=== PATIENT | female | born 1950 | race Caucasian/White ===

== ENCOUNTER 2017-01-29 15:13 | Outpatient (RCR) | payer MEDICARE, BC, SELFPAY | END 2017-01-29 19:00 | disposition home or self-care (01) | LOC: SP 15:13 | PROVIDERS: Family Provider Internal Medicine; PCP Internal Medicine; Visit Provider Nurse Practitioner Adult Health | DX: R13.13 Dysphagia, pharyngeal phase (principal); K21.9 Gastro-esophageal reflux disease without esophagitis; Z79.899 Other long term (current) drug therapy ==

== ENCOUNTER → 2018-07-13 13:37 | Outpatient (CLI) | payer MEDICARE, BC, SELFPAY ==
[2016-07-31 10:38] VITALS: BMI 49.4
--- NOTE | 2018-07-13 13:40 | RAD_ITS ---
STUDY: X-RAY - LUMBAR SPINE REASON FOR EXAM: Female, 67 years old. Back pain. Previous surgery. TECHNIQUE: 4 view(s) of the lumbar spine were obtained with flexion and extension views. COMPARISON: MRI 08/06/2015. FINDINGS: Patient has had posterior fusion with bilateral intrapedicular screws and posterior rods at L3 and L4. No evidence for surgical complication. Normal alignment along this segment. Moderate narrowing of the disc. Neutral view shows exaggerated lordosis. Flexion and extension views show essentially no normal motion. There are no subluxations. There is fusion of the disc at L2-L3, and moderate to severe degenerative disc disease at all other levels are No significant malalignments. Calcified plaque in the aorta. No compression fractures. RAD/L/S Spine Min 4 Views IMPRESSION: Posterior surgical fusion between L3 and L4 with no complication. Little if any range of motion. Moderate to severe multilevel degenerative changes. Electronically Signed: Sai Ly MD at 14:59 EDT , Service support ,
== END ==
PROVIDERS: Family Provider Internal Medicine; PCP Internal Medicine; Referring Provider Orthopaedic Surgery; Visit Provider Orthopaedic Surgery
DX: M54.5 Low back pain (principal)
CPT/HCPCS: 72110

== ENCOUNTER → 2018-07-28 12:44 | Outpatient (CLI) | payer MEDICARE, BC, SELFPAY ==
--- NOTE | 2018-07-28 12:47 | MRI_ITS ---
HISTORY:RRadiculopathyR hip into R leg h/o prior sx 07/2017 RRadiculopathyR hip into R leg h/o prior sx 07/2017 EXAMINATION: MR Spine Lumbar WO/W Contrast TECHNIQUE: Multiplanar and multisequence MR images of the lumbar spine. IV Contrast dosage and agent: 20 cc of Dotarem. COMPARISON: August 15, 2015 also radiographs of the lumbar spine obtained on July 13, 2018 FINDINGS: Left convexity scoliosis Postsurgical changes are noted at the level of L3 and L4 with posterior rods and pedicle screws The conus appears within normal limits and ends at the level of T12-L1 VERTEBRAE: Vertebral body heights are preserved. There is increased signal seen on postcontrast sagittal images involving the L2 vertebral body however there is no evidence of abnormal STIR signal. On noncontrast images there are Modic type II changes seen at the level of L1-2 and L2-3. This may be artifactual as it is not seen on postcontrast axial images. VERTEBRAL ALIGNMENT: No spondylolisthesis. Levoscoliosis CORD: Normal position and signal intensity of the conus medullaris. SOFT TISSUES: There are postsurgical changes in the soft tissues at the level of L3 and L4. This area does enhance with contrast compatible with granulation tissue.. It also demonstrates increased signal on STIR-weighted imaging T12-L1: There is a diffuse annular bulge without evidence of canal stenosis and significant neuroforaminal narrowing. This is similar in appearance to the prior study. There is a meningioma that is seen within the T12 vertebral body L1/L2: Decreased disc height and hydration. There is a diffuse annular bulge asymmetric to the left. This was seen on the prior study and is similar. There is mild to moderate bilateral neural foraminal narrowing similar to prior study there is also facet arthrosis. The canals at the lower limits of normal L2/L3: There is near ankylosis at the level of L2-3. Posterior osteophytes are noted. There is no evidence of canal stenosis. There is mild to moderate left and moderate right neural foraminal narrowing L3/L4: No evidence of a disc contour abnormality or canal stenosis. Laminectomy defect at this level. No significant neuroforaminal narrowing L4/L5: Minimal annular bulge without evidence of canal stenosis. Laminectomy defect. Moderate bilateral neuroforaminal narrowing L5/S1: There are posterior osteophytes at this level with decreased disc height and hydration in Modic type II changes at the endplates. Osteophytes extend into the neural foramen bilaterally. There is moderate bilateral neural foraminal narrowing. Laminectomy defect at this level with granulation tissue. In the right neural foramen there is a soft tissue density that may represent a disc protrusion seen on axial image 6 series 8 and series 6. It is also seen on image 4 series 5. This does not enhance with contrast. MRI/Spine Lumbar W/WO Contrast IMPRESSION: Postsurgical changes at the level of L3 and L4 with posterior rods and pedicle screws. Laminectomy defects are seen extending to L5. At the level of L5-S1 there is nonenhancing signal seen within the right neural foramen suspect for a disc protrusion/extrusion. Granulation tissue is seen at the surgical bed as discussed There is abnormal signal that is seen within the L2 vertebral body on sagittal postcontrast images however it is not seen on axial images and I suspect is artifactual. at 1743 Reported and signed by: Carmen Cooper DO Electronically Signed: Carmen Cooper DO at 17:42 EDT Tel , Service support ,
[2018-07-28 13:50] LABS: EGFR FINGERSTICK > 60.0000 mL/min (>60)
== END ==
PROVIDERS: Family Provider Internal Medicine; PCP Internal Medicine; Referring Provider Orthopaedic Surgery; Visit Provider Orthopaedic Surgery
DX: M54.16 Radiculopathy, lumbar region (principal)
CPT/HCPCS: 72158; A9575

== ENCOUNTER 2018-08-12 13:00 | Outpatient (RCR) | payer MEDICARE, BC, SELFPAY ==
[2018-07-13 13:52] VITALS: BMI 46.7
--- NOTE | 2018-07-22 13:37 | HP.PTEVAL_ITS ---
Patient's Visit Information MATHEW OSBORNE is a 67 year old F referred to Physical Therapy by Rubina Olguin MD with a diagnosis of LOW BACK PAIN. Date of Evaluation: 07/22/18 Physical Therapist: Vida Ramirez PT, Cert MDT - Visit Plan Frequency: 2x /Week Duration: 2 Months Plan: POSTURE CORRECTION/STRENGTHENING, INSTRUCTION IN APPROPRIATE BODY MECHANICS AND ACTIVITY MODIFICATIONS. DLS STARTING WITH A NEUTRAL SPINE PROGRESSING ROM TOLERATED. ISAAC LE ROM, STRETCHING AND STRENGTHENING. HEP INSTRUCTION. PATIENT DELCINES AQUATIC THERAPY BECAUSE OF HER BADDER. - Subjective Findings: Work/Leisure: RETIRED. Disability: NO. Present symptoms: RIGHT SCIATICA, LOW BACK PAIN, PAIN IN RIGHT HIP, RIGHT THIGH, RIGHT KNEE. PATIENT REPORTS SHE HAS NUMBNESS AND TINGLING IN BOTH HANDS, BOTH FEET AND COMING UP LEGS TO KNEES. GETTING FURTHER UP LEGS. STATES SHE HAS BEEN DIAGNOSED WITH NEUROPATHY. Present since: CHRONIC. Pain Scale: WORST 20/10, LEAST 2/10. Currently: 2/10. Commenced as a result of: NO APPARENT REASON. Symptoms at onset: LOW BACK. Worse: STANDING, WALKING. Better: SITTING, [place]. Disturbed sleep: YES. Previous history/Previous treatment: LUMBAR SURGERY 11/14/17, LUMBAR INJECTIONS 2013. HOME PHYSICAL THREAPY AFTER BACK SURGERY. LUMBAR CHIROPRACTIC TREATEMENTS X 1 YEAR A LONG TIME AGO - DIDN'T HELP. MASSOTHERAPY HELPS - NONE SINCE 2013. Coughing/sneezing/straining: NEGATIVE. Gait: TIME AND DISTANCE LIMITED. NEEDS CANE FOR BALANCE. Difficulty initiating urinatin: NO. Accidents: NO. NO RECENT FALLS. Unexplained weight loss: NO. Imaging: MRI PENDING OF LOW BACK JULY 28 2018. NO RECENT X-RAYS THAT PATIENT CAN RECALL. PMH: BAD EQUALIBRIUM AND UNSTEADY FEET. LOOSES BALANCE BUT DOES NOT FALL. RIGHT THR 2013, LEFT THYROIDECTOMY 2016, SKULL FX 1969 - Objective Sitting/Standing Posture: POOR. Lordosis: DECREASED. Lateral shift: NO. Relevant shift: N/A. Active Correction of posture: NE. Other Observations: INDEP ANTALGIC GAIT INTO PT X APPROX 300 FEET WITH QUAD CANE. NO LOB. INCREASED TRUNK FLEXION, DECREASED CADANCE AND DECREASED ISAAC STRIDE LENGTH. QUICK SHORT STEPS WITH WIDE BASE OF SUPPORT. Motor deficit: ISAAC LE WEAKNESS. I PROCEEDED CAREFULLY WITH MMT'ING BECAUSE OF PATIENT C/O OF ISAAC LE TENDERNESS LEFT > RIGHT (OLD INJURY). ISAAC HIPS 4-/5, KNEE EXT 4/5, KNEE FLEX 4/5, ANKLES 4/5. Sensory deficit: ISAAC LE LIGHT TOUCH SENSATION APPEARS INTACT AND SYMMETRICAL BUT PATIENT REPORTS BOTH HYPERSENSATIVITY AND NUMBNESS IN BOTH LEGS FROM KNEES DOWN. ROM deficit: TIGHT ISAAC HIP FLEXORS, HS'S AND GASTROC SOLEUS COMPLEX'S. Reflexes: NT. Dural Signs: NEGATIVE ISAAC LE DURAL SIGNS. Lumbar mvmt loss: flex - MIN. ext - LUNA. R SG - LUNA. L SG - LUNA. Core strength: POOR. Palpation: NO ACUTE TENDERNESS WITH LIGHT PALPATION OF LOWER THORACIC SPINE, LUMBAR SPINE OR ISAAC HIPS BUT PATIENT REPORTS RIGHT HIP TENDERNESS WITH DEEP PALPATION. - Goals Goal 1:: DECREASE C/O BACK AND ISAAC LE SX'S. Goal Time Frame: 6-8 Weeks Goal 2:: IMPROVE PERSONAL CARE, LIFTING, WALKING, STANDING, SOCIAL LIFE, AND SLEEP FUNCTION Goal Time Frame: 6-8 Weeks Goal 3:: INSTRUCT IN PROPHYLAXIS Goal Time Frame: 6-8 Weeks - Rehabilitation Potential Rehabilitation Potential: Fair - Anticipated Interventions Patient/Client Instruction: Educate patient on: Condition, Plan of Care, Risk Factors, Benefits of Fitness Program For the Purpose of:: To improve self management Therapeutic Exercise to Include: Strength training, Body mechanics, Postural tra ining, Flexibilty training, Dynamic Lumbar Stabilization Comment: FOCUS ON HEP For the Purpose of:: To decrease pain, To increase ROM, To improve muscle performance and motor function, To increase tolerance to activity/condition/position, To improve ability of physical actions for home/community/work/leisure, To improve gait and locomotor functions Thank you for the opportunity to evaluate your patient. For Medicare and Medicare HMO plans, please review the plan of care and approve it. It will need to be FAXED BACK to us at [phone] for Medicare purposes. For Medicare only, by signing this I certify the plan of care. Please let me know if there are questions or concerns regarding this plan of care. Physician Signature: Date:
--- NOTE | 2018-08-12 13:29 | HP.PTDCSUM_ITS ---
HP - PT D/C Summary It has been my pleasure to treat MATHEW OSBORNE under orders from Rubina Olguin MD, for the diagnosis of LOW BACK PAIN for a total of 7 visit(s). Discharge Date: Please see the following information for a summary of their discharge status. - Subjective Subjective: PATIENT REPORTS SHE IS STILL VERY PAINFUL. STATES IT HAS BEEN REALLY HARD TO DO THE THERAPY. SHE DOES NOT SEE ANY BENEFIT FROM THE THERAPY. - Pain Sciatic Pain Intensity (Out of 10): 3 - Overall Improvement % Improvement: 0 - Objective Objective/Function: Patient Playfully complains throughout sessions but does what is asked. NO SIGNIFICANT CHANGES UPON EXAM TODAY COMPARED TO INITIAL EVAL AND PATIENT IS NOT REPORTING ANY SIGNIFICATNT CHANGES. TODAY: INDEP ANTALGIC GAIT INTO PT X APPROX 300 FEET WITH QUAD CANE. NO LOB. INCREASED TRUNK FLEXION, DECREASED CADANCE AND DECREASED ISAAC STRIDE LENGTH. QUICK SHORT STEPS WITH WIDE BASE OF SUPPORT. Motor deficit: ISAAC LE WEAKNESS. I PROCEEDED CAREFULLY WITH MMT'ING BECAUSE OF PATIENT C/O OF ISAAC LE TENDERNESS LEFT > RIGHT (OLD INJURY). ISAAC HIPS 4-/5, KNEE EXT 4/5, KNEE FLEX 4/5, ANKLES 4/5. Sensory deficit: ISAAC LE LIGHT TOUCH SENSATION APPEARS INTACT AND SYMMETRICAL BUT PATIENT REPORTS ISAAC HYPERSENSATIVITY AND NUMBNESS IN BOTH LEGS FROM KNEES DOWN. ROM deficit: TIGHT ISAAC HIP FLEXORS, HS'S AND GASTROC SOLEUS COMPLEX'S. Refl exes: NT. Dural Signs: NEGATIVE ISAAC LE DURAL SIGNS. Lumbar mvmt loss: flex - MIN. ext - LUNA. R SG - LUNA. L SG - LUNA. Core strength: POOR. Palpation: NO ACUTE TENDERNESS WITH LIGHT PALPATION OF LOWER THORACIC SPINE, LUMBAR SPINE OR ISAAC HIPS BUT PATIENT REPORTS RIGHT HIP TENDERNESS WITH DEEP PALPATION. - Goals Goal 1:: DECREASE C/O BACK AND ISAAC LE SX'S. Goal Progress: Not Progressing Goal 2:: IMPROVE PERSONAL CARE, LIFTING, WALKING, STANDING, SOCIAL LIFE, AND SLEEP FUNCTION Goal Progress: Not Progressing Goal 3:: INSTRUCT IN PROPHYLAXIS Goal Progress: Not Progressing - Plan Plan: D/C DUE TO LACK OF PROGRESS. PATIENT AGREEABLE. - D/C Information If there are questions or concerns regarding this patient's physical therapy, please feel free to call me at [phone]. Thank you for the referral of this patient. Sincerely, Vida Ramirez, PT, Cert MDT
== END 2018-08-12 19:00 | disposition home or self-care (01) ==
LOC: PT 13:00
PROVIDERS: Family Provider Internal Medicine; PCP Internal Medicine; Referring Provider Orthopaedic Surgery; Visit Provider Orthopaedic Surgery
DX: M54.5 Low back pain (principal)
CPT/HCPCS: 97110; 97162; 97530

== ENCOUNTER 2018-12-08 10:30 | Outpatient (RCR) | payer MEDICARE, BC, SELFPAY ==
--- NOTE | 2018-11-12 09:11 | HP.OTEVAL ---
Patient's Visit Information MATHEW OSBORNE is a 68 year old F, referred to Occupational Therapy by Monster Boogie MD, with a diagnosis of left primary osteoarthritis of 1st carpometacarpal joint. Date of Evaluation: 11/11/18 Occupational Therapist: Sherin Borrego, JAM/Andrez, CHT - Subjective Subjective: This 68 year old female was seen for OT eval following a left CMC arthroplasty with LRTI 10/13/28. Pt states she had pain on and off for a few years. Pt arrives following sx cast removal for custom orthosis and rehabilitation following her CMC arthroplasty. Pt states she is BONNY with ADLs at this time due to her inability to use her left hand for daily tasks. - ADLs Dressing: Button shirt, Pants, Socks, Shoes Bathing: Handle washcloth & soap Toileting: Manage clothing - Pain left thumb 2 Pain Intensity Range: 0, 5 - ROM Wrist: right 60/45 let 45/15 CMC: right 15 left 15 MP: right 50 left 30 IP: right 65 left 40 Opposition: right 8 left 2 - Strength Pipe Fitter Welding: right 30# left NT Lateral Pinch: right 12# left NT Tripod Pinch: right 12# left NT - Sensation Sensation Comments: denies - Quick DASH-Disab of Arm,Shoulder& Hand Quick DASH Score: 72.7250 - Goals Goal:100% adherence to protocol: Yes Comment: CMC arthroplasty with LRTI Goal:Daily scar massage when approriate: Yes Goal:ROM equal to unaffected hand: Yes Goal:Pipe Fitter Welding/Pinch strength at least 75% of unaffected hand: Yes Goal:No pain with affected hand use: Yes Goal:Full use of affected hand in daily activities including: Yes - Rehabilitation General Assessment: pt demo limited ROM,weakness of left UE following a left CMC arthroplasty. Pt reports pain at times with motion and this is limiting her with her ADLs and IADLS. PT would benefit from skilled OT services 1x week for 6 weeks to return pts ROM and strength to PLOF. Today therapist mali. custom orthosis to provide support and protection of CMC arthroplasty. pt ed in ROM ex and protocol. pt demo understanding and agree to POC. Rehabilitation Potential: Good - Anticipated Interventions Anticipated Interventions: A/AAROM/PROM, Strengthening, Scar Care, Triggerpoint Release, Modalities, Orthoses, Joint Protection/Energy Conservation - Visit Plan Frequency: 1x/Week Duration: 6 Weeks TEXT: Thank you for the opportunity to evaluate your patient. For Medicare and Medicare HMO plans, please review the plan of care and approve it. It will need to be FAXED BACK to us at [phone] for Medicare purposes. Please let me know if there are questions or concerns regarding this plan of care. Physician Signature: Date:
--- NOTE | 2018-12-08 10:34 | HP.OTDCSUM ---
HP - OT D/C Summary It has been my pleasure to treat MATHEW OSBORNE under orders from Monster Boogie MD, for the diagnosis of left primary osteoarthritis of 1st carpometacarpal joint for a total of 4 visit(s). Please see the following information for a summary of their discharge status. - Overall Improvement % Improvement: 90 - Objective Objective/Function: left wrist 55/45. left MP flex 35*. left IP flex 45*. pt is demo functional return of her left wrist and thumb ROM. left motor grader rough grade strength. 17# right motor grader rough grade strength is 20# - Goals Patient Goals: Regain Mobility, Regain Strength, Decrease Pain, Use Hand/Wrist/Arm Normally Again, Be More Independent in ADLS Goal:100% adherence to protocol: Yes Goal:Daily scar massage when approriate: Yes Goal:ROM equal to unaffected hand: Yes Goal:Hydroelectric Plant Operator/Pinch strength at least 75% of unaffected hand: Yes Goal:No pain with affected hand use: Yes Goal:Full use of affected hand in daily activities including: Yes - Plan Plan: D/C - D/C Information Discharge Comments: pt demo great recovery from her CMC arthroplasty. pt has returned to performing all ADLS and IADls at [facility]. pt reports sorness from time to time and then she knows to stop what she is doing. pt has met goals in OT and is D/C at this time. If there are questions or concerns regarding this patient's occupational therapy, please fell free to call me at [phone]. Thank you for the referral of this patient. Sincerely, Sherin Borrego, OTR/L, CHT
== END 2018-12-08 11:03 | disposition home or self-care (01) ==
LOC: OT 10:30
PROVIDERS: Family Provider Internal Medicine; PCP Internal Medicine; Referring Provider Orthopaedic Surgery; Visit Provider Orthopaedic Surgery
DX: M18.12 Unilateral primary osteoarthritis of first carpometacarpal joint, left hand (principal)
CPT/HCPCS: 97110; 97166; 97530

== ENCOUNTER → 2019-07-19 14:14 | Outpatient (CLI) | payer MEDICARE, BC, SELFPAY ==
[2019-07-19 17:53] LABS: Absolute Lymphocyte Count 2.24 X10^3/uL (0.83-4.51); Absolute Neutrophil Count 5.2 X10^3/uL (2.0-7.7); Basophil# 0.04 X10^3/uL; Basophil% 0.5 % (0-1); Eosinophil# 0.44 X10^3/uL; Eosinophils% 5.1 % (0-5); Hemoglobin 12.5 g/dL (12.0-15.0); Lymphocyte # 2.24 X10^3/ul (4.0); Mean Corp Hgb Conc 31.3 g/dL (32-36); Mean Corpuscular Hgb 28.9 pg (27.0-32.0); Mean Corpuscular Volume 92.6 fL (81-99); Mean Platelet Vol. 11.1 fl (6.2-12.0); Monocyte# 0.66 X10^3/uL; Monocyte% 7.7 % (0-10); NRBC Flagged by Analyzer 0 % (0-5); Neutrophil # 5.21 X10^3/uL (2.7-7.7); Neutrophil % 60.5 % (47-70); Platelet Count 286 K/mm3 (150-450); RBC Distribution Width CV 15.4 % (11.6-14.6); RBC Distribution Width SD 52.3 fl (35.1-43.9); Red Blood Count 4.32 M/mm3 (4.2-5.4); White Blood Count 8.6 K/mm3 (4.4-11.0)
[2019-07-19 18:26] LABS: ALB/GLOB Ratio 0.7 RATIO (0.9-2.4); AST(SGOT) 21 U/L (15-37); Alanine Aminotransfer ALT/SGPT 26 U/L (13-56); Albumin, Serum 3.1 g/dL (3.2-5.0); Alkaline Phosphatase 146 U/L (45-117); Anion Gap 7 (5-15); BUN 22 mg/dL (7-18); BUN/Creat Ratio 25.9 RATIO (10-20); Chloride 104 mmol/L (98-107); Creatinine, Serum 0.85 mg/dL (0.55-1.02); EST Glomerular Filtration Rate 70 mL/min (>60); Est Glom Filt Rate - Afr Amer 85 mL/min (>60); Globulin 4.4 g/dL (2.2-4.2); Glucose 77 mg/dL (74-106); Potassium 3.6 mmol/L (3.5-5.1); Protein, Total 7.5 g/dL (6.4-8.2); Rheumatoid Factor < 10.0 IU/mL (<15); Sodium Level 140 mmol/L (136-145)
[2019-07-20 11:20] LABS: Hepatitis B Surface Antibody Non-Reactive; Hepatitis B Surface Antigen Non-Reactive (Nonreactive); Hepatitis C Antibody Non-Reactive (Nonreactive)
[2019-07-22 13:16] LABS: CCP IgG Antibodies 7 units (0-19); Hepatitis B Core AB IgM Negative (Negative)
[2019-07-22 13:19] LABS: ANTINUCLEAR ANTIBODIES DIRECT Negative (Negative)
== END ==
PROVIDERS: PCP Internal Medicine; Referring Provider Internal Medicine Rheumatology; Visit Provider Internal Medicine Rheumatology
DX: M06.4 Inflammatory polyarthropathy (principal); M79.7 Fibromyalgia; M19.041 Primary osteoarthritis, right hand; M47.892 Other spondylosis, cervical region; M47.897 Other spondylosis, lumbosacral region; M21.41 Flat foot [pes planus] (acquired), right foot; K21.9 Gastro-esophageal reflux disease without esophagitis; K44.9 Diaphragmatic hernia without obstruction or gangrene; I10 Essential (primary) hypertension; E89.0 Postprocedural hypothyroidism; E78.5 Hyperlipidemia, unspecified; G60.9 Hereditary and idiopathic neuropathy, unspecified; H81.09 Meniere's disease, unspecified ear; N39.41 Urge incontinence; I87.2 Venous insufficiency (chronic) (peripheral)
CPT/HCPCS: 36415; 80053; 85025; 86038; 86200; 86431; 86705; 86706; 86803; 87340

== ENCOUNTER → 2019-09-07 14:20 | Outpatient (CLI) | payer MEDICARE, BC, SELFPAY ==
[2018-07-13 13:52] VITALS: BMI 46.7
[2019-09-07 17:54] LABS: Absolute Lymphocyte Count 2.21 X10^3/uL (0.83-4.51); Absolute Neutrophil Count 5.5 X10^3/uL (2.0-7.7); Basophil# 0.04 X10^3/uL; Basophil% 0.4 % (0-1); Eosinophil# 0.35 X10^3/uL; Eosinophils% 3.9 % (0-5); Hemoglobin 12.9 g/dL (12.0-15.0); Lymphocyte # 2.21 X10^3/ul (4.0); Lymphocyte % 24.8 % (19-41); Mean Corp Hgb Conc 31.5 g/dL (32-36); Mean Corpuscular Hgb 30.3 pg (27.0-32.0); Mean Corpuscular Volume 96.2 fL (81-99); Mean Platelet Vol. 10.7 fl (6.2-12.0); NRBC Flagged by Analyzer 0 % (0-5); Neutrophil # 5.48 X10^3/uL (2.7-7.7); Neutrophil % 61.7 % (47-70); Platelet Count 280 K/mm3 (150-450); RBC Distribution Width SD 56.3 fl (35.1-43.9); Red Blood Count 4.26 M/mm3 (4.2-5.4); White Blood Count 8.9 K/mm3 (4.4-11.0)
[2019-09-07 18:06] LABS: ALB/GLOB Ratio 0.7 RATIO (0.9-2.4); AST(SGOT) 23 U/L (15-37); Alanine Aminotransfer ALT/SGPT 32 U/L (13-56); Albumin, Serum 3.2 g/dL (3.2-5.0); Alkaline Phosphatase 153 U/L (45-117); Anion Gap 5 (5-15); BUN 18 mg/dL (7-18); BUN/Creat Ratio 20.9 RATIO (10-20); Calcium,Total 8.4 mg/dL (8.5-10.1); Chloride 104 mmol/L (98-107); Creatinine, Serum 0.86 mg/dL (0.55-1.02); EST Glomerular Filtration Rate 69 mL/min (>60); Est Glom Filt Rate - Afr Amer 84 mL/min (>60); Globulin 4.7 g/dL (2.2-4.2); Glucose 91 mg/dL (74-106); Potassium 3.3 mmol/L (3.5-5.1); Protein, Total 7.9 g/dL (6.4-8.2); Sodium Level 138 mmol/L (136-145)
== END ==
PROVIDERS: PCP Internal Medicine; Referring Provider Internal Medicine Rheumatology; Visit Provider Internal Medicine Rheumatology
DX: M06.4 Inflammatory polyarthropathy (principal); M79.7 Fibromyalgia; M19.041 Primary osteoarthritis, right hand; M17.0 Bilateral primary osteoarthritis of knee; M47.892 Other spondylosis, cervical region; M47.897 Other spondylosis, lumbosacral region; M21.41 Flat foot [pes planus] (acquired), right foot; K21.9 Gastro-esophageal reflux disease without esophagitis; K44.9 Diaphragmatic hernia without obstruction or gangrene; I10 Essential (primary) hypertension; E89.0 Postprocedural hypothyroidism; E78.5 Hyperlipidemia, unspecified; G60.9 Hereditary and idiopathic neuropathy, unspecified; H81.09 Meniere's disease, unspecified ear; I87.2 Venous insufficiency (chronic) (peripheral); N39.41 Urge incontinence; Z79.899 Other long term (current) drug therapy
CPT/HCPCS: 36415; 80053; 85025

== ENCOUNTER → 2019-11-04 13:32 | Outpatient (CLI) | payer MEDICARE, BC, SELFPAY ==
[2018-07-13 13:52] VITALS: BMI 46.7
[2019-11-04 15:52] LABS: Absolute Lymphocyte Count 1.86 X10^3/uL (0.83-4.51); Absolute Neutrophil Count 6.1 X10^3/uL (2.0-7.7); Basophil# 0.04 X10^3/uL; Basophil% 0.4 % (0-1); Eosinophil# 0.35 X10^3/uL; Eosinophils% 3.8 % (0-5); Hematocrit 41.6 % (37-47); Lymphocyte # 1.86 X10^3/ul (4.0); Lymphocyte % 20.3 % (19-41); Mean Corp Hgb Conc 31.3 g/dL (32-36); Mean Corpuscular Hgb 30.8 pg (27.0-32.0); Mean Corpuscular Volume 98.6 fL (81-99); Mean Platelet Vol. 11.6 fl (6.2-12.0); Monocyte# 0.77 X10^3/uL; Monocyte% 8.4 % (0-10); NRBC Flagged by Analyzer 0 % (0-5); Neutrophil # 6.11 X10^3/uL (2.7-7.7); Neutrophil % 66.6 % (47-70); Platelet Count 253 K/mm3 (150-450); RBC Distribution Width SD 61.2 fl (35.1-43.9); Red Blood Count 4.22 M/mm3 (4.2-5.4); White Blood Count 9.2 K/mm3 (4.4-11.0)
[2019-11-04 16:16] LABS: ALB/GLOB Ratio 0.7 RATIO (0.9-2.4); AST(SGOT) 28 U/L (15-37); Alanine Aminotransfer ALT/SGPT 33 U/L (13-56); Albumin, Serum 3.3 g/dL (3.2-5.0); Alkaline Phosphatase 166 U/L (45-117); Anion Gap 8 (5-15); BUN 21 mg/dL (7-18); Chloride 104 mmol/L (98-107); Creatinine, Serum 0.84 mg/dL (0.55-1.02); EST Glomerular Filtration Rate 71 mL/min (>60); Est Glom Filt Rate - Afr Amer 86 mL/min (>60); Globulin 4.6 g/dL (2.2-4.2); Glucose 107 mg/dL (74-106); Potassium 4.1 mmol/L (3.5-5.1); Protein, Total 7.9 g/dL (6.4-8.2); Sodium Level 139 mmol/L (136-145)
== END ==
PROVIDERS: PCP Internal Medicine; Referring Provider Internal Medicine Rheumatology; Visit Provider Internal Medicine Rheumatology
DX: M06.4 Inflammatory polyarthropathy (principal); M79.7 Fibromyalgia; M19.041 Primary osteoarthritis, right hand; M19.042 Primary osteoarthritis, left hand; M17.0 Bilateral primary osteoarthritis of knee; M47.892 Other spondylosis, cervical region; M47.897 Other spondylosis, lumbosacral region; M21.42 Flat foot [pes planus] (acquired), left foot; M21.41 Flat foot [pes planus] (acquired), right foot; Z79.899 Other long term (current) drug therapy
CPT/HCPCS: 36415; 80053; 85025

== ENCOUNTER 2020-01-12 17:16 | Emergency (ER) | payer MEDICARE, BC, SELFPAY ==
[2020-01-12 17:18] VITALS: BP 145/93; PULSE 69; RESP 17; TEMP 36.3; O2SAT 97; BMI 47.6
--- NOTE | 2020-01-12 17:42 | ED.DCSUM_ITS ---
History of Present Illness Chief Complaint: Back Informant: Patient Onset: Yesterday Context: Gradual Onset - after PT worked on my RLE Timing: Continuous Quality: Aching Location: Buttock, Right Leg - to knee, anteriorly and not beyond Current Severity: Moderate Maximum Severity: Severe Worsened by: improves with: Movement Relieved by: Remaining Still Associated Symptoms: Radiation to Right Leg, - - No new numbness or tingling or changes in her chronic bilateral foot tingling. No bowel or bladder dysfunction that is new or different. No abdominal pain or groin pain. Narrative: Patient states she had surgery on her cervical spine 1 month ago, and has a physical therapist coming to her house periodically to help her. Yesterday the were performing a maneuver on her right lower extremity that from the patient's description, seems to be gentle active external rotation while in flexed thigh position. Patient states she thinks that is the maneuver that created sciatica symptoms that she is describing, that started gradually afterwards and not acutely during it. She describes pain in her right posterior lateral buttock that radiates into the anterior thigh to the knee and not beyond. She has [place] from her operation that she is taking but it is not helping this pain at all. She presents today for relief from the pain. She lives alone but does have some help from some family who brought her here today. She denies any other new issues. No weakness in the leg, she is able to walk but it hurts in certain positions. Prior similar symptoms: Yes, With Prior Back Pain - sciatica - Past Medical History (1) Physical debility Status: Chronic (2) Gastroesophageal reflux disease without esophagitis Status: Chronic (3) Hypertension Status: Chronic (4) Hypothyroidism Status: Chronic (5) Morbid obesity with body mass index of 40.0-49.9 Status: Chronic Past Medical History - Allergies and Home Meds Allergies/Adverse Reactions: Allergies wool Allergy (Verified 01/12/20 17:17) Rash erythromycin base [From E-Mycin] Adverse Reaction (Verified 01/12/20 17:17) Upset Stomach ibuprofen Adverse Reaction (Verified 01/12/20 17:17) Swelling lisinopril Adverse Reaction (Verified 01/12/20 17:17) Unknown oxycodone HCl [From Percocet] Adverse Reaction (Verified 01/12/20 17:17) Itching MYOCIN Adverse Reaction (Uncoded 01/12/20 17:17) Nausea/Vom/Diarrhea Primary Care Physician: Jude Brennan MD [Primary Care Provider] - Surgical History: - - Neck. Low back. Right knee. Lives: Alone Smoking Status: Former smoker Review of Systems General: Denies: Chills, Fever, Sweats Cardiovascular: Denies: Chest pain, Palpitations Respiratory: Denies: Dyspnea, Cough Gastrointestinal: Reports: Abdominal pain. Denies: Nausea, Vomiting, Diarrhea, Hematochezia Genitourinary: Denies: Dysuria, Hematuria, Frequency Musculoskeletal: Reports: Neck pain, Back pain, Extremity Pain. Denies: Myalgias, Swelling Skin: Denies: Rash, Wounds Neurological: Reports: Numbness - Chronic, both feet mostly on the bottoms. Denies: Headache, Weakness Physical Exam Vital Signs/Narrative: Vital Signs Temp Pulse Resp BP Pulse Ox 01/12/20 17:18 97.3 F L 69 17 145/93 H 97 Inital Vital Signs reviewed: Yes General: Well nourished, Well developed, Obese, - - Sitting in wheelchair. No acute distress. Head: Normocephalic, Atraumatic Eyes: Perrl, EOMI Abdomen: Soft, Nontender, Nondistended, - - Nontender right groin, no hernia, no lymphadenopathy. Back: Normal Inspection, Negative SLR - Right, Negative SLR - Left, - - Only area of tenderness in the low back is the right buttock external rotators/piriformis area.. Negative for: Spinal tenderness Extremeties: No edema, Tenderness - Right thigh which is normal-appearing, all compartments soft. Able to flex quads without any difficulty. Pain can internally and externally rotate about the hip, both cause increased discomfort in her right buttock. She is able to range. Skin: Normal color, No rash Neuro: Alert, Oriented, Normal Strength, Normal Sensation, Normal DTR, - - No clonus bilaterally. Toes downgoing. Hyporeflexic and symmetric throughout both lower extremities. Psychological: Normal affect, Normal Mood Diagnostic/Tx/Re-eval - Medical Decision Making This may or may not actually be a radiculopathy. I discussed this with the patient. This may be muscular piriformis/external rotator-related pain. For that reason she was given oral Norflex in addition to a dose of morphine with prophylactic Zofran to try to help her pain. ED Disposition - Plan for ED Patient: Disposition: Home or Assisted Living Diagnosis: Acute low back pain Instructions: ED Back Pain Acute or Chronic Referrals: Jude Brennan MD [Primary Care Provider] - 3-5 Days if not improving
[2020-01-12] MEDS: Orphenadrine 100 MG Tablet PO (17:54)
[2020-01-12] MEDS: Morphine 4 MG/ML Syringe IM (17:54)
[2020-01-12] MEDS: Ondansetron ODT 4 MG Tablet 8 MG PO (17:54)
== END 2020-01-12 18:20 | disposition home or self-care (01) ==
LOC: ED 17:59
PROVIDERS: Emergency Provider Emergency Medicine; PCP Internal Medicine
DX: M54.5 Low back pain (principal); I10 Essential (primary) hypertension; K21.9 Gastro-esophageal reflux disease without esophagitis; E03.9 Hypothyroidism, unspecified; E66.01 Morbid (severe) obesity due to excess calories; Z68.42 Body mass index [BMI] 45.0-49.9, adult; Z88.5 Allergy status to narcotic agent; Z88.6 Allergy status to analgesic agent; Z79.899 Other long term (current) drug therapy; Z87.891 Personal history of nicotine dependence
CPT/HCPCS: 96374; 99283

== ENCOUNTER 2020-02-18 18:31 | Emergency (ER) | payer MEDICARE, BC, SELFPAY ==
[2020-02-18 18:32] VITALS: BP 141/68; PULSE 66; RESP 20; TEMP 36.7; O2SAT 96; BMI 45.9
[2020-02-18 19:21] VITALS: BP 132/70; PULSE 60; RESP 15; O2SAT 97
--- NOTE | 2020-02-18 19:22 | ED.DCSUM_ITS ---
- ER Visit Summary Date of Service: 02/18/20 Chief Complaint: Right posterior shoulder pain History of Present Illness: The patient is a 69 F prior lumbar and cervical fusion. Hypertension, high cholesterol and hypothyroidism. Patient states that she has right shoulder pain from time to time she calls it upper extremity postop sciatica. States she had surgery in November and in [facility]. She was doing well. Today she had recurrent pain. And states has been going on intermittently the last week. Worse with movement. She said Tylenol and [place] have not helped her pain. She denies any falls or trauma. No chest pain, shortness of breath or fever. Physical Examination: Well-appearing older female vital signs stable afebrile. Pulse ox 96% on room air no signs hypoxia. HEENT exam unremarkable. C-spine old well-healed cervical surgery. Spine nontender. No lymphadenopathy. Lungs clear to auscultation bilaterally. Heart regular rhythm no murmur. Chest wall nontender. Abdomen soft nontender obese. Back she has right trapezius reproducible tenderness. Consistent with muscle spasm. Both upper extremities are neurovascular intact. Dorsi plantarflexion intact. She has normal superintendent production strength bilaterally and sensation. She is moving all 4 extremities. Neurologically she is awake and alert. No focal motor deficits. Test Results: None Emergency Department Course and Treatment: Patient with a prior visit with similar complaint consistent with myofascial spasm of the shoulder. Should be given an injection of IM morphine and p.o. Zofran. She can use [place] at home for pain. Treatment Plan: Follow-up with her primary care physician. Hot shower, warm bath and massage to the right shoulder. Limited [place] 10 no refill for pain. Disposition: discharge Impression: Acute right shoulder muscle spasm Hx of both cervical fusion and lumbar fusion This note was generated with [employer] dictation software. It may contain incorrect words, spelling, and punctuation that were not noted in review of the chart prior to signing ED Disposition - Plan for ED Patient: Referrals: Jude Brennan MD [Primary Care Provider] -
--- NOTE | 2020-02-18 19:25 | ED.DEP ---
ED Disposition - Plan for ED Patient: Disposition: Home or Assisted Living Instructions: ED Muscle Spasm Prescriptions: Hydrocodone/Acetaminophen [[place] 5-325 Tablet] 1 ea PO 4X/DAY PRN PRN 3 Days #10 tab PRN Reason: Pain 1-10 Or Fever Prescription Printed Referrals: Jude Brennan MD [Primary Care Provider] - 3-5 Days if not improving Additional Instructions: Hot shower, warm bath and massage her right shoulder. You have muscle spasm the muscle needs to be relax. Limited [place] for pain. Follow-up with your doctor if not improving. Return to the emergency department if feeling worse.
[2020-02-18] MEDS: Ondansetron ODT 4 MG Tablet PO (19:35)
[2020-02-18] MEDS: morphine 8 MG/ML Syringe SC (19:35)
== END 2020-02-18 20:05 | disposition home or self-care (01) ==
PROVIDERS: Emergency Provider Emergency Medicine; PCP Internal Medicine
DX: M62.838 Other muscle spasm (principal); Z98.1 Arthrodesis status; I10 Essential (primary) hypertension; E78.00 Pure hypercholesterolemia, unspecified; E03.9 Hypothyroidism, unspecified; Z79.899 Other long term (current) drug therapy
CPT/HCPCS: 96372; 99283

== ENCOUNTER 2020-03-30 14:00 | Outpatient (RCR) | payer MEDICARE, BC, SELFPAY ==
--- NOTE | 2020-03-07 14:02 | HP.PTEVAL_ITS ---
Patient's Visit Information MATHEW OSBORNE is a 69 year old F referred to Physical Therapy by Dr. Zuhair Main MD with a diagnosis of CERVICAL STENOSIS. S/P C2-7 FUSION 12/09/19.. Date of Evaluation: 03/07/20 Physical Therapist: Vida Ramirez, PT, Cert MDT - Visit Plan Frequency: 2-3x /Week Duration: 4-6 Weeks Plan: MH NEEDED. POSTURE CORRECTION/STRENGTHENING, INSTRUCTION IN APPROPRIATE BODY MECHANICS AND ACTIVITY MODIFICATIONS. DLS WITH A NEUTRAL SPINE FRANC ATED. AROM (NO PROM) OF CERVICAL SPINE. ISAAC LE ROM, STRETCHING AND STRENGTHENING. HEP INSTRUCTION. - Subjective Diagnosis: S/P CERVICAL FUSION C2-C7 BY DR. MAIN. Work/Leisure: RETIRED. Present symptoms: RIGHT SHOULDER BLADE PAIN. INTERMITTENT NECK PAIN. CHRONIC NECK CRACKING. SEPERATE L SHLD PAIN. UE NEUROPATHY. Present since: CHRONIC NECK PAIN FOR YEARS. Pain Scale: Worst - 10+/10 Least - 0/10. Currently: 0/10. Commenced as a result of: NO APPARENT REASON - WORE OUT. Symptoms at onset: NECK. Worse: MOVING CERTAIN WAYS. RANDOM. Better: HOLDING STILL, LEANING BACK ON CHAIR. Disturbed sleep: NO. Previous history/Previous treatment: 2015 - ACDF C3-C6. NO CHIROPRACTOR FOR YEARS. DOES NOT LIKE CHIROPRACTORS. LIKES MASSAGE THERAPY BETTER. This episode: POSTERIOR FUSION C2-C7. PT IN THE HOSPITAL AND HOME PT AND OT. Dizziness: YES - CHRONIC. Tinnitis: YES - CHRONIC. Nausea: NO. Shortness of Breath: YES - CHRONIC WITH ALLERGIES. Difficulty Swollowing: TO A DEGREE. Gait: USING A QUAD CANE NEEDED OUTSIDE OF HOME. NOT USING ANY ASSISTIVE DEVICES IN HOME. Accidents: NO. Unexplained weight loss: NO. Imaging: PLANNED AT FOLLOW UP IN MAR 2020. PMH/Recent major surgery: CHRONIC ISAAC SHOULDER PROBLEMS. R THR 2014, 2 NECK FUSIONS, LOW BACK SURGERY. NOT DIABETIC. HTN. NO CANCER. NO STROKE. NO HEART ATTACKS. L THUMB SX 2019 - HURT THUMB YESTERDAY WORKING WITH A BINDER. OTHER: PATIENT RELATES A LOT OF HER ORTHOPEDIC PROBLEMS TO HEAVY FACTORY WORK FOR YEARS. PATIENT REPORTS SHE IS DOING SOME OF HER HOME EX'S FOR HER NECK BUT SHE DOENS' T REALLY COUNT. - Objective Sitting Posture/Standing Posture: POOR. FH AND ROUNDED SHLD'S. Active Correction of posture: WORSE - INCREASES R SHLD BLADE PAIN. Other Observations: INDEP GAIT INTO PT WITH QUAD CANE. GAIT IS LABORED AND PATIENT WALKS WITH SHORT ISAAC STEPS. SHE WAS ABLE TO WALK ABOUT 300 FEET X 2 TODAY WITH DIFFICULTY BUT REFUSED TO SIT PART WAY BETWEEN LOBBY AND TREATMENT ROOM. PATIENT IS UE DEPENDENT TO TRANSFER FROM SIT TO STAND. ROM/Motor deficit: RIGHT SHOULDER ELEVATION LIMITED TO APPROX 90 DEG. LEFT SHLD ELEVATION TO APPROX 100 DEG. RIGHT POLICE OFFICER STRENGTH 15 LBS, LEFT 5 LBS. ISAAC UE ELBOW, WRIST ROM WFL BUT ARTHRITIC HANDS. Sensory deficit: ISAAC UE LIGHT TOUCH SENSATION APPEARS INTACT AND SYMMETRICAL. Reflexes: UNABLE TO ELICIT ISAAC UE DTR'S. Cervical Mvmt Loss: Flex: MIN. Pro: NIL. Ext: LUNA. Ret: LUNA. RSB: LUNA. LSB: LUNA. R Rot: LUNA. L Rot: LUNA. Postural strength: POOR. Palpation: INCISION LOOKS GOOD WITHOUT ANY SIGNS OF INFECTION. TREATMENT: PATIENT DEMO'D AROM OF C-SPINE AND SCAP SQUEEZES THAT SHE HAS BEEN SINCE GIVEN TO HER BY PRIOR PT'S. ADDED CERVICAL ISO'S ALL PLANES EXCEPT EXT TO HEP TODAY X 3 REPS EA, HOLDING FOR 3 SEC EA AND 3 TIMES A DAY. PATIENT TOLERATED ISO'S WELL. OTHER: PATIENT REPORTS THE ONLY RESTRICTION SHE HAS IS TO NOT ROLL HER HEAD. - Goals Goal 1:: DECREASE C/O NECK AND RIGHT SCAPULAR PAIN Goal Time Frame: 4-6 Weeks Goal 2:: IMPROVE PERSONAL CARE, LIFTING, READING, WORK, DRIVING AND RECREATIONAL FUNCTION. Goal Time Frame: 4-6 Weeks Goal 3:: INSTRUCT IN PROPHYLAXIS Goal Time Frame: 4-6 Weeks - Anticipated Interventions Patient/Client Instruction: Educate patient on: Condition, Plan of Care, Risk Factors, Benefits of Fitness Program For the Purpose of:: To improve self management Therapeutic Exercise to Include: Strength training, Body mechanics, Postural training, Neuromotor development, Active ROM, Scapular Strength/Stabilization For the Purpose of:: To decrease pain, To improve muscle performance and motor function, To increase tolerance to activity/condition/position, To improve ability of physical actions for home/community/work/leisure Thermo therapy (hot pack): Yes For the Purpose of:: To decrease pain, To improve nutrient delivery to tissue Thank you for the opportunity to evaluate your patient. For Medicare and Medicare HMO plans, please review the plan of care and approve it. It will need to be FAXED BACK to us at [phone] for Medicare purposes. For Medicare only, by signing this I certify the plan of care. Please let me know if there are questions or concerns regarding this plan of care. Physician Signature: Date:
--- NOTE | 2020-03-30 14:58 | HP.PTDCSUM ---
It has been my pleasure to treat MATHEW OSBORNE referred by Dr. Zuhair Main MD, with the diagnosis of CERVICAL STENOSIS. S/P C2-7 FUSION 12/09/19. for a total of 10 visit(s). Discharge Date: 03/30/20 Please see the following information for a summary of their discharge status. Subjective: She reports that she is the same old achy brachy. She wants the muscle between her ear and spine to lossen up. Pt reports that he neck is aggrevating and stiff. She has another massage appt soon. She reports that PT is helping with some pain relief and sciatica has decided to quit hurting. Pt reports that she saw her surgeon yesterday and goes back to him in [address] said to no shake her head yes and no. Pt wants to do Massage and HEP at this time. She kevin contact her Dr if she needs additional PT. c-spine Pain Intensity (Out of 10): Unrated R hip Pain Intensity (Out of 10): 1 % Improvement: 95 Objective/Function: C-spine flex 100%, Ext 25%, SB B 10%, Rot B 50%. Posture: works really hard to try and maintain upright posture. Goal 1:: DECREASE C/O NECK AND RIGHT SCAPULAR PAIN Goal Progress: Goal Met Goal 2:: IMPROVE PERSONAL CARE, LIFTING, READING, WORK, DRIVING AND RECREATIONAL FUNCTION. Goal Progress: Goal Met Goal 3:: INSTRUCT IN PROPHYLAXIS Goal Progress: Goal Met Plan: DC PT to HEP per pt request as she will be doing massotherapy and HEP. Discharge Comments: DC PT to HEP If there are questions or concerns regarding this patient's physical therapy, please feel free to call me at [phone]. Thank you for the referral of this patient. Sincerely, Jesika Bahena, MPT
== END 2020-03-30 19:00 | disposition home or self-care (01) ==
LOC: PT 14:00
PROVIDERS: PCP Internal Medicine; Referring Provider Neurological Surgery; Visit Provider Neurological Surgery
DX: M48.02 Spinal stenosis, cervical region (principal); G95.9 Disease of spinal cord, unspecified
CPT/HCPCS: 97110; 97162; 97530

== ENCOUNTER 2022-01-23 07:38 | Day surgery (SDC) | payer MEDICARE, BC, SELFPAY ==
--- NOTE | 2022-01-06 10:38 | PCM.HP.BLA ---
History and Physical Date of Admission: 01/23/22 HPI: The patient is a 71 year old female presenting for pre-operative visit. She is scheduled for Hysteroscopy D&C with polyp resection for PMB and endometrial polyp and thickened endometrium on 01/23/22. Procedure discussed along with risks, benefits and complications. Other alternatives discussed for management. Consent form signed? Yes. ? ? PAST MEDICAL HISTORY PAST MEDICAL HISTORY Diagnosis Date ? Acquired hypothyroidism 02/28/2015 ? Adjustment disorder with depressed mood 12/2019 ? Alkaline phosphatase elevation 09/15/2015 ? Arthritis ? ? Asymptomatic varicose veins 10/08/2007 ? Benign neoplasm of colon ? ? DDD (degenerative disc disease), cervical 10/02/2015 ? Esophageal reflux ? ? Essential hypertension, benign ? ? Fracture, skull (HCC) ? ? Hip pain 03/11/2013 ? Idiopathic peripheral neuropathy 10/02/2015 ? Inflammatory polyarthropathy (HCC) 07/19/2019 ? Dr. Daphnie Frazier, Rheumatology ? Lipodermatosclerosis of both lower extremities 12/06/2020 ? Dr. Stringer. ? Meniere's disease ? ? Mental disorder ? ? Multinodular goiter (nontoxic) 12/02/2014 ? Obesity, unspecified ? ? Optic neuritis, right ? ? Osteoarthritis of hip 03/11/2013 ? Other optic neuritis 03/01/2007 ? Pharyngoesophageal dysphagia ? ? Simple endometrial hyperplasia without atypia 02/22/1997 ? HYPERPLASIA ENDOMETRIUM( SIMPLE W/O ATYPIA) ? Snoring ? ? TM JOINT DISORDER, UNSPEC 03/01/2007 ? Toe fracture, right ? ? Unspecified hypothyroidism ? ? Urge urinary incontinence 09/28/2017 ? Venous insufficiency (chronic) (peripheral) 10/08/2007 ? ? PAST SURGICAL HISTORY PAST SURGICAL HISTORY Procedure Laterality Date ? ADDTL NECK SPINE FUSION ? 12/10/2019 ? C2-C7 posterior fusion. [facility] ? APPENDECTOMY ? 1963 ? ARTHRODESIS [facility] JNT THUMB W/WO FIX Left 10/13/2018 ? ARTHRP ACETBLR/PROX FEM PROSTC AGRFT/ALGRFT Right 11/14/13 ? Hip replacement, total right ? COLONOSCOPY FLX DX W/COLLJ SPEC WHEN PFRMD ? 2002 ? Colonoscopy ? HYSTEROSCOPY BX ENDOMETRIUM&/POLYPC W/WO D&C ? 10/13/96 ? endometrial polyps ? LAMINECTOMY W/O FFD > 2 VERT SEG LUMBAR ? 08/14/2017 ? LAPAROSCOPY SURG CHOLECYSTECTOMY ? 06/18 ? Cholecystectomy, lap ? NEUROPLASTY &/TRANSPOS MEDIAN NRV CARPAL TUNNE Right 1973 ? Carpal tunnel decomp, bilateral ? NEUROPLASTY &/TRANSPOS MEDIAN NRV CARPAL TUNNE Left 1974 ? Carpal tunnel decomp bilateral ? PAST SURGICAL HISTORY OF ? 10/19/2003 ? right shoulder arthroscopy ? PAST SURGICAL HISTORY OF ? 2004 ? bilateral knee arthrooscopy ? PAST SURGICAL HISTORY OF ? 01/15/15 ? C4 corpectomy, C3-C6 anterior cervical decompression fusion ? THYROIDECTOMY SUBTOTAL/PARTIAL Left 07/31/2016 ? ? ? CURRENT MEDICATIONS Current Outpatient Medications Medication Sig Dispense Refill ? levothyroxine (LEVOXYL) 112 mcg tablet Take 1 tablet by mouth once daily. Take on empty stomach. For thyroid. 90 tablet 3 ? cholecalciferol (VITAMIN D) 1,000 unit tab tablet Take 1 tablet by mouth once daily. ? ? ? losartan (COZAAR) 50 mg tablet Take 1 tablet by mouth once daily. 90 tablet 3 ? gabapentin (NEURONTIN) 400 mg capsule Take 3 capsules by mouth three times daily for 180 days. 270 capsule 5 ? atorvastatin (LIPITOR) 10 mg tablet Take 1 tablet by mouth daily at bedtime. For cholesterol 90 tablet 3 ? hydroCHLOROthiazide (HYDRODIURIL, ESIDRIX) 25 mg tablet Take 1 tablet by mouth once daily. 90 tablet 3 ? thymol/chlorophyllin (CHLOROPHYLL ORAL) Take by mouth. ? ? ? oxybutynin ER (DITROPAN XL) 15 mg 24 hr Extended Rel Tab Take 1 tablet by mouth once daily. 90 tablet 3 ? potassium chloride SR (MICRO-K) 10 mEq CR capsule Take 1 capsule by mouth twice daily. 180 capsule 3 ? esomeprazole (NEXIUM) 40 mg capsule Take 1 capsule by mouth daily before breakfast. 90 capsule 3 ? BIOTIN ORAL Take 5,000 mcg by mouth once daily. ? ? ? ABBEY'S WORT ORAL Take 300 mg by mouth once daily. ? ? ? vitamin B complex (B COMPLEX 1 ORAL) Take 1 tablet by mouth once daily. ? ? ? GINKGO BILOBA ORAL Take 120 mg by mouth once daily. ? ? ? cranberry fruit extract (CRANBERRY EXTRACT ORAL) Take 500 mg by mouth once daily. ? ? ? CINNAMON Take 2,000 mL by mouth once daily. ? ? ? ALPHA LIPOIC ACID ORAL Take 400 mg by mouth once daily. ? ? ? triamcinolone acetonide (KENALOG) 0.1 % cream Apply 1 application to affected area twice daily. Legs/scalp for 3 weeks. ? ? ? folic acid 1 mg tablet Take 2 mg by mouth once daily. ? ? ? CALCIUM CITRATE ORAL Take 1,000 mg by mouth once daily. ? ? ? acetaminophen (TYLENOL 8 HOUR ORAL) Take by mouth. ? ? ? Zinc 50 mg tab Take 50 mg by mouth once daily. ? ? ? lactose-reduced food (PROTEIN NUTRITIONAL SHAKE ORAL) Take by mouth. Patient to drink 1-2 protein shakes daily. ? ? ? Ascorbic Acid (VITAMIN C) 1,000 mg tablet Take 1,000 mg by mouth once daily. ? ? 0 ? Magnesium 250 mg tab Take 2 tablets by mouth once daily. ? 0 ? fexofenadine (KIMO) 180 mg tablet Take 1 tablet by mouth once daily. ? 0 ? PANTOTHENIC ACID 500 MG TAB Take one(1) tablet daily. ? 0 ? MULTIVITAMIN TABLET Take one(1) tablet daily. ? 0 ? No current facility-administered medications for this visit. ? ? ALLERGIES: Percocet [Oxycodone-Acetaminophen], E-Mycin [Erythromycin], Ibuprofen, Lisinopril, and Wool ? PERSONAL HISTORY: SOCIAL HISTORY Social History ? Tobacco Use ? Smoking status: Former ? ? Packs/day: 0.50 ? ? Years: 10.00 ? ? Pack years: 5.00 ? ? Types: Cigarettes ? ? Quit date: 02/16/1969 ? ? Years since quittin.9 ? Smokeless tobacco: Never ? Tobacco comments: ? ? Quit Vaping Use ? Vaping Use: Never used Substance Use Topics ? Alcohol use: No ? Drug use: No ? FAMILY HISTORY: FAMILY HISTORY FAMILY HISTORY Problem Relation Age of Onset ? Hypertension Mother ? ? Alzheimer's Disease Mother ? ? Prostate Cancer Father ? ? None Sister ? ? Prostate Cancer Brother ? ? Arthritis Brother ? ? Total knee ? Cancer Maternal Grandfather ? ? Stomach ? Alzheimer's Disease Maternal Aunt ? ? Alzheimer's Disease Maternal Aunt ? ? Stroke Maternal Uncle ? ? Stroke Maternal Uncle ? ? ? REVIEW OF SYMPTOMS: GENERAL: denies fevers or chills ENDOCRINOLOGY: has not been on steroids Cardiology : denies palpitations or chest pain Respiratory: denies SOB or cough Hematology: denies history of prolonged bleeding or easy bruising or VTE Allergy: Denies history of personal or family history of allergy to anesthesia ? PHYSICAL EXAMINATION: ? VITALS: Blood pressure 124/74, weight 216 lb (98 kg). ? GENERAL: The patient is well nourished, well hydrated in no acute distress. , The patient is oriented to time, place, and person. NECK: Supple. No lynphadenopathy, normal thyroid, no thyromegaly. LUNGS: Clear to auscultation bilaterally. no wheezes, rhonchi or rales HEART: Regular rate and rhythm, Normal heart sounds, and No murmurs or gallops ? ? IMPRESSION: PMB, thickened endometrium, endometrial polyp ? PLAN: The risks/benefits/alternatives and personal involved for the planned hysteroscopy D&C were reviewed with the patient. Her questions were answered to her satisfaction and she desires to proceed. Consent was signed. I reviewed with her postop instructions and expectations. ? ? ? I have reviewed and updated past medical and surgical history, medications and allergies Assessment & Plan Assessment/Plan (1) Morbid obesity with body mass index of 40.0-49.9: (2) PMB (postmenopausal bleeding): (3) Thickened endometrium: (4) Endometrial polyp:
[2022-01-17 11:27] LABS: Hematocrit 42.1 % (37-47); Hemoglobin 13.4 g/dL (12.0-15.0); Mean Corp Hgb Conc 31.8 g/dL (32-36); Mean Corpuscular Hgb 29.8 pg (27.0-32.0); Mean Corpuscular Volume 93.6 fL (81-99); Mean Platelet Vol. 11.2 fl (6.2-12.0); Platelet Count 193 K/mm3 (150-450); RBC Distribution Width CV 14.4 % (11.6-14.6); RBC Distribution Width SD 49.7 fl (35.1-43.9); White Blood Count 9.4 K/mm3 (4.4-11.0)
[2022-01-17 12:01] LABS: ALB/GLOB Ratio 0.7 RATIO (0.9-2.4); AST(SGOT) 19 U/L (15-37); Alanine Aminotransfer ALT/SGPT 23 U/L (13-56); Albumin, Serum 3.2 g/dL (3.2-5.0); Alkaline Phosphatase 152 U/L (45-117); Anion Gap 4 (5-15); BUN 22 mg/dL (7-18); BUN/Creat Ratio 30.4 RATIO (10-20); Calcium,Total 9.1 mg/dL (8.5-10.1); Chloride 105 mmol/L (98-107); Creatinine, Serum 0.72 mg/dL (0.55-1.02); EST Glomerular Filtration Rate 84 mL/min (>60); Est Glom Filt Rate - Afr Amer 101 mL/min (>60); Globulin 4.5 g/dL (2.2-4.2); Glucose 85 mg/dL (74-106); Potassium 3.8 mmol/L (3.5-5.1); Protein, Total 7.7 g/dL (6.4-8.2); Sodium Level 139 mmol/L (136-145)
--- NOTE | 2022-01-23 | EMB_PTH ---
PATIENT: MATHEW OSBORNE LOC: [facility] [place] U#:[id number] AGE/SX: 71/F ROOM: RE01/23/[address]: Dr. Ana Plascencia MD : [id number] BED: DIS: 01/23/2022 SPEC #: [id number] RECD: 01/23/22 13:14 STATUS: FELIPE DEXTERJeremiah #: [id number] SATHISH: 01/23/22 00:[address]: Ana Plascencia DEPT: SURGICAL PATHOLOGY RECD BY: Gilson Leonard ENTERED: 01/23/22 13:14 SP TYPE: ENDOM BX/C ALTAGRACIA DR: Dr. Jude Brennan MD Tissues: A - Endometrium, NOS B - Endocervical Procedures: Surgery Specimen Level IV HEADER OPERATION: Hysteroscopy, D & C Symphion, polyp resection PRE-OP DIAGNOSIS: Morbid obesity, postmenopausal bleeding, thickened endometrium, endometrial polyp TISSUE SUBMITTED: A ? Endometrial curettings, endometrial polyp, B ? Endocervical polyp MICROSCOPIC DIAGNOSIS A. Endometrium and polyp, biopsy: Polypoid fragments of simple hyperplasia without atypia. B. Endocervical polyp, biopsy: Fragments of endocervical polyp, inflamed. AM:agustina 01/24/2022 MICROSCOPIC DESCRIPTION Slides are reviewed. GROSS DESCRIPTION A - Received in fixative is one container labeled with the patient's name and designated endometrial curettings, endometrial polyp. The specimen consists of multiple irregular fragments of red-funes soft tissue that in aggregate measure 5 x 3 x 0.2 cm. The specimen is totally submitted in one cassette. B - Received in fixative is one container labeled with the patient's name and designated endocervical polyp. The specimen consists of an irregular polypoid piece of funes-pink soft tissue measuring 2.5 x 1.5 x 0.5 cm. This piece is bisected. Also present in the container are multiple pieces of funes-pink soft tissue measuring in aggregate 2 x 1 x 0.2 cm. The entire specimen is submitted in one cassette. / SJ:agustina 01/23/2022 TC:5 CPT: 11166 x2
[2022-01-23 08:25] VITALS: BP 134/71; PULSE 56; RESP 20; TEMP 36.7; O2SAT 99; BMI 48.0
[2022-01-23] MEDS: Lactated Ringers 1,000 ML 15 ML IV (08:39)
[2022-01-23] MEDS: Acetaminophen 500 MG Tablet 1000 MG PO (08:40)
[2022-01-23 08:57] LABS: ALB/GLOB Ratio 0.8 RATIO (0.9-2.4); AST(SGOT) 20 U/L (15-37); Alanine Aminotransfer ALT/SGPT 26 U/L (13-56); Albumin, Serum 3.3 g/dL (3.2-5.0); Alkaline Phosphatase 146 U/L (45-117); Anion Gap 9 (5-15); BUN 18 mg/dL (7-18); BUN/Creat Ratio 23.6 RATIO (10-20); Calcium,Total 8.9 mg/dL (8.5-10.1); Chloride 107 mmol/L (98-107); Creatinine, Serum 0.76 mg/dL (0.55-1.02); EST Glomerular Filtration Rate 79 mL/min (>60); Est Glom Filt Rate - Afr Amer 95 mL/min (>60); Estimated Creatinine Clearance 76.88 ml/min; Globulin 4.2 g/dL (2.2-4.2); Glucose 99 mg/dL (74-106); Potassium 3.9 mmol/L (3.5-5.1); Protein, Total 7.5 g/dL (6.4-8.2); Sodium Level 143 mmol/L (136-145)
--- NOTE | 2022-01-23 09:43 | PCM.DC ---
Discharge Instructions Diet Discharge Diet: No restrictions Activity May resume sexual activity in: 2 weeks Lifting Restrictions: none Dressing / Incision Call your doctor if your incision/area has: Sudden Increased Bleeding and Foul Smelling Discharge Call your doctor if you observe: Fever of 101 or Higher and Using more than 1 pad per hour (for 2 hrs in a row) Follow Up Care Please Follow Up With: Ana Plascencia MD When: 2-4 weeks or as needed. Call [phone] to make an appointment or with any concerns. Test Results: Test results from this visit will be discussed in further detail at your follow-up appointment, if applicable. Discharge Plan Admission Primary Reason for Your Visit: hysteroscopy D&C with polyp resection Attending Provider: Ana Plascencia Primary Care Provider: Jude Brennan Discharge Orders/Prescriptions Prescriptions: No Action ascorbic acid (vitamin C) [Vitamin C] 500 MG tablet 1,000 mg PO DAILY Label Comments: Vitamin supplement. Take with Iron (ferrous sulfate) to improve absorption. levothyroxine 50 MCG tablet 112 mcg PO DAILY Label Comments: Hypothyroid hydrochlorothiazide 25 MG tablet 25 mg PO DAILY Label Comments: Blood pressure, diuretic (water pill) multivitamin with folic acid [Thera] 1 TABLET tablet 1 tab PO DAILY Label Comments: Vitamin supplement potassium chloride [Klor-Con M10] 10 MEQ tablet,ER particles/crystals 10 meq PO BID Label Comments: Potassium supplement mometasone [Nasonex] 1 SPRAY spray,non-aerosol 2 spray NASAL DAILY PRN PRN (Reason: Nasal Congestion) Label Comments: Nasal congestion calcium citrate-vitamin D3 1 EACH tablet 1 ea PO DAILY Label Comments: Calcium supplement gabapentin [Neurontin] 400 MG capsule 1,200 mg PO TID Label Comments: NERVE PAIN esomeprazole magnesium [Nexium] 40 MG capsule 40 mg PO DAILY Label Comments: REFLUX losartan 25 MG tablet 50 mg PO DAILY Label Comments: BP magnesium 250 MG tablet 500 mg PO DAILY Label Comments: SUPPLEMENT oxybutynin chloride [Ditropan XL] 15 MG tablet extended release 24hr 15 mg PO DAILY atorvastatin 10 MG tablet 10 mg PO QHS fexofenadine 180 MG tablet 180 mg PO DINNER folic acid 1 MG tablet 2 mg PO DAILY zinc 50 MG tablet 50 mg PO DAILY [place]'s wort 300 MG capsule 300 mg PO DAILY pantothenic acid (vit B5) 500 mg Tablet 500 mg PO DAILY acetaminophen 650 mg Tablet 650 mg PO BID ginkgo biloba 120 mg Tablet 120 mg PO DAILY Rx Instructions: give with meal/snack cranberry extract 500 mg Capsule 500 mg PO DAILY Rx Instructions: administer with meals cinnamon bark [Cinnamon] 500 mg Capsule 2,000 mg PO DAILY alpha lipoic acid 200 mg Tablet 400 mg PO DAILY Chlorella Caps 0.45-9-67 [id number] Capsule 2 cap PO DAILY biotin 5,000 mcg Tablet, Sublingual 5,000 mcg SUBLINGUAL DAILY turmeric 400 mg Capsule 400 mg PO DAILY almita root extract 50 mg Tablet 550 mg PO DAILY Referrals / Follow Up: Jude Brennan MD [Primary Care Provider] - Disposition Disposition (needs filled in before D/C Order can be placed): Home, Self Care
[2022-01-23] MEDS: Vasopressin 20 UNITS/ML Vial (09:48)
--- NOTE | 2022-01-23 10:07 | OP.PCM_ITS ---
Problems Associated Problem List Diagnoses (1) Thickened endometrium: (2) Endometrial polyp: (3) PMB (postmenopausal bleeding): Report of Operation Date of Procedure: 01/23/22 Pre-Operative Diagnosis: endometrial polyp, PMB, thickened endometrium Post-Operative Diagnosis: same Surgery/Procedure Performed:: hysteroscopy with endometrial polyp resection, visual D&C and endocervical polypectomy Description of Surgical Findings:: Large polyp extruding from the cervix. Cervix itself is normal. ENdometrium w/ large polyp and likely fibroid anterior fundus. Atrophic endometrium Surgeon: Ana Plascencia stripper black and white: kianna Soliman Type of Anesthesia: MAC Anesthesiologist: Neema Foreman Special Medications: none Specimen's removed: endometrial curettings, endometrial polyp, endocervical polyp Drains: none Estimated Blood Loss (mL): 10 Fluids Replaced: 600 Description of Procedure: The patient was taken to the OR where she was prepped and draped in dorsal lithotomy position. The weighted speculum was placed in the vagina and the anterior lip of the cervix was grasped with a single-tooth tenaculum. 6 cc of dilute vasopressin solution was injected in the cervix. The solution was 20 units of vasopressin and 40 cc of normal saline. The endocervical polyp was grasped with a ring forcep and twisted on its pedicle until it was removed and placed on a Telfa. The cervix was dilated serially with Hegar dilators. The symphion hysteroscope was placed into the uterine cavity and the above findings were noted. Bilateral tubal ostia [were] identified. The resection device was readied and inserted. The device was used to resect the polyp, do a visual D&C and resect part of the submucosal fibroid at the fundus. As I was removing the hysteroscope I could see part of the polyp base in the endocervix and this was resected with the Symphion device as well the instruments were removed from the vagina. The specimen was handed off and sent to pathology. All sponge and needle counts were correct. Vaginal sweep was performed by me. The patient was awakened and taken to the recovery room in stable condition. Calculated hysteroscopic fluid deficit was approximately 600 cc of normal saline Grafts/Implants Used: none Procedure Start Time: 09:48 Procedure Stop Time: 10:02 Complications none Admit VTE Documentation VTE Present on Admission: No VTE Mechan Device Prophylaxis: SCD's
[2022-01-23 10:09] VITALS: BP 129/67; BP 134/71; PULSE 60; RESP 18; TEMP 36.5; O2SAT 93
[2022-01-23 10:15] VITALS: BP 134/71; BP 181/140; PULSE 60; RESP 16; O2SAT 92
[2022-01-23 10:20] VITALS: BP 134/71; BP 139/75; PULSE 62; RESP 16; O2SAT 93
[2022-01-23 10:25] VITALS: BP 134/71; BP 137/79; PULSE 95; RESP 16; TEMP 36.4; O2SAT 95
[2022-01-23 11:28] VITALS: BP 126/74; BP 134/71; PULSE 72; RESP 16; TEMP 36.6; O2SAT 100
== END 2022-01-23 11:33 | disposition home or self-care (01) ==
LOC: SDC 07:39 → AC 07:39
PROVIDERS: Anesthesiology; PCP Internal Medicine; Referring Provider Obstetrics & Gynecology; Visit Provider Obstetrics & Gynecology
PROC: 0UB98ZZ Excision of Uterus, Via Natural or Artificial Opening Endoscopic (ICD-10-PCS; CPT 58558; principal; 2022-01-23 09:10)
DX: N84.0 Polyp of corpus uteri (principal); E66.01 Morbid (severe) obesity due to excess calories; Z68.42 Body mass index [BMI] 45.0-49.9, adult; N95.0 Postmenopausal bleeding; I10 Essential (primary) hypertension; E03.9 Hypothyroidism, unspecified; Z79.899 Other long term (current) drug therapy; Z87.891 Personal history of nicotine dependence
CPT/HCPCS: 58558; 00952; 36415; 80053; 85027; 88305; J7120; J2405

== ENCOUNTER 2022-07-15 19:29 | Inpatient (IN) | payer MEDICARE, BC, SELFPAY ==
[2022-07-15 19:30] VITALS: BP 161/70; PULSE 80; RESP 15; TEMP 36.4; O2SAT 96
[2022-07-15 20:17] LABS: Absolute Neutrophil Count 8.8 X10^3/uL (2.0-7.7); Basophil# 0.05 X10^3/uL; Basophil% 0.4 % (0-1); Eosinophil# 0.52 X10^3/uL; Eosinophils% 4.3 % (0-5); Hematocrit 44.1 % (37-47); Hemoglobin 13.6 g/dL (12.0-15.0); Lymphocyte % 14.7 % (19-41); Mean Corp Hgb Conc 30.8 g/dL (32-36); Mean Corpuscular Hgb 28.9 pg (27.0-32.0); Mean Corpuscular Volume 93.8 fL (81-99); Mean Platelet Vol. 10.7 fl (6.2-12.0); Monocyte# 1.06 X10^3/uL; Monocyte% 8.7 % (0-10); NRBC Flagged by Analyzer 0 % (0-5); Neutrophil # 8.75 X10^3/uL (2.7-7.7); Neutrophil % 71.7 % (47-70); Platelet Count 304 K/mm3 (150-450); RBC Distribution Width CV 15.5 % (11.6-14.6); White Blood Count 12.2 K/mm3 (4.4-11.0)
[2022-07-15 20:32] LABS: Anion Gap 6 (5-15); BUN 15 mg/dL (7-18); BUN/Creat Ratio 19.6 RATIO (10-20); Calcium,Total 9.4 mg/dL (8.5-10.1); Chloride 113 mmol/L (98-107); Creatinine, Serum 0.76 mg/dL (0.55-1.02); EST Glomerular Filtration Rate 79 mL/min (>60); Est Glom Filt Rate - Afr Amer 95 mL/min (>60); Glucose 119 mg/dL (74-106); Potassium 5.8 mmol/L (3.5-5.1); Sodium Level 141 mmol/L (136-145)
--- NOTE | 2022-07-15 21:03 | CT_ITS ---
INDICATION: abdominal distention EXAMINATION: CT Abdomen And Pelvis W/ Contrast Injection TECHNIQUE: Helically acquired images were obtained of the abdomen and pelvis after IV contrast. A radiation dose optimization technique was used for this scan. IV Contrast dosage and agent: IV 100mL Isovue-300 Oral contrast: None. COMPARISON: None. FINDINGS: Visualized lung bases: Unremarkable Liver: Unremarkable Gallbladder: Surgically absent. Spleen: Unremarkable Pancreas: Unremarkable Adrenal Glands: Unremarkable Kidneys: 2.5 cm simple left parapelvic cyst. Vasculature: Unremarkable GI Tract: Unremarkable Lymphadenopathy: None Peritoneum: No ascites. Bladder: Unremarkable Reproductive organs: Unremarkable Bones/Soft tissues: Right proximal femur hardware status post ORIF. Diffuse degenerative changes of the visualized spine. Posterior fusion hardware L3-L4. CT/Abdomen/Pelvis W IV Cont ONLY IMPRESSION: No acute abnormalities in the abdomen or pelvis. Electronically Signed: Stanton Villarreal MD at 22:27 EDT ,
--- NOTE | 2022-07-15 21:13 | EX.ED.DYSGE1 ---
HPI History of Present Illness Chief Complaint: General Illness Narrative Narrative: 71-year-old female presenting with abdominal bloating and cramping. She states that this started on Thursday she states she was with family and she definitely overdid it eating food. She had a lot of gas and diarrhea since then. She notes that her abdomen is distended. Past surgical history of appendectomy, cholecystectomy and she states she has a history of a hernia which was not repaired. Denies any fever, chills, body aches. She recalls that she had a low potassium in 2005 and it felt very similar so the patient took 20 potassium pills today to try to combat the feeling of hypokalemia. Denies any black or bloody stools. Denies vomiting. She has had some intermittent nausea. No urinary or vaginal complaints. [facility] Medical History Ambulates with cane Diverticulosis Endometrial polyp Former smoker Gastric reflux Heartburn High cholesterol History of hiatal hernia History of meniscal tear History of stress test Restless legs Thyroid disease Wears glasses Home Medications ascorbic acid (vitamin C) 500 mg tablet (Vitamin C) 1,000 mg PO DAILY 11/22/12 [History Last Taken 12/29/12 08:00] levothyroxine 50 mcg tablet 112 mcg PO DAILY 11/22/12 [History Last Taken 01/23/22 04:00] hydrochlorothiazide 25 mg tablet 25 mg PO DAILY 12/29/12 [History Last Taken 12/29/12 08:00] multivitamin with folic acid 400 mcg tablet (Thera) 1 tab PO DAILY 12/29/12 [History Last Taken 12/29/12 08:00] calcium citrate 315 mg calcium-vitamin D3 6.25 mcg (250 unit) tablet 1 ea PO DAILY 11/17/13 [History Last Taken Unknown] mometasone 50 mcg/actuation nasal spray (Nasonex) 2 spray DAILY PRN PRN Nasal Congestion 11/17/13 [History Last Taken Unknown] potassium chloride 10 mEq tablet,extended release(part/cryst) (Klor-Con M) 10 meq PO BID 11/17/13 [History Last Taken Unknown] esomeprazole magnesium 40 mg capsule,delayed release (Nexium) 40 mg PO DAILY 07/29/16 [History Last Taken 01/23/22 04:00] gabapentin 400 mg capsule (Neurontin) 1,200 mg PO TID 07/29/16 [History Last Taken 01/23/22 04:00] losartan 25 mg tablet 50 mg PO DAILY 07/29/16 [History Last Taken 01/23/22 04:00] magnesium 250 mg tablet 500 mg PO DAILY 07/29/16 [History Last Taken Unknown] oxybutynin chloride 15 mg tablet,extended release 24 hr (Ditropan XL) 15 mg PO DAILY 07/31/16 [History Last Taken Unknown] [place]'s wort 300 mg capsule 300 mg PO DAILY 02/18/20 [History Last Taken Unknown] atorvastatin 10 mg tablet 10 mg PO QHS 02/18/20 [History Last Taken Unknown] fexofenadine 180 mg tablet 180 mg PO DINNER 02/18/20 [History Last Taken Unknown] folic acid 1 mg tablet 2 mg PO DAILY 02/18/20 [History Last Taken Unknown] zinc 50 mg tablet 50 mg PO DAILY 02/18/20 [History Last Taken Unknown] acetaminophen 650 mg tablet 650 mg PO BID 01/16/22 [History Last Taken Unknown] alpha lipoic acid 200 mg tablet 400 mg PO DAILY 01/16/22 [History Last Taken Unknown] biotin 5,000 mcg sublingual tablet 5,000 mcg sublingual DAILY 01/16/22 [History Last Taken Unknown] gsdwqaeqc-tpjrvrbtvg-V1-B2-folic acid-iron 0.45 gram-9 mg-67 unit cap 2 cap PO DAILY 01/16/22 [History Last Taken Unknown] cinnamon bark 500 mg capsule (Cinnamon) 2,000 mg PO DAILY 01/16/22 [History Last Taken Unknown] cranberry extract 500 mg capsule 500 mg PO DAILY 01/16/22 [History Last Taken Unknown] almita root extract 50 mg tablet 550 mg PO DAILY 01/16/22 [History Last Taken Unknown] ginkgo biloba 120 mg tablet 120 mg PO DAILY 01/16/22 [History Last Taken Unknown] pantothenic acid (vit B5) 500 mg tablet 500 mg PO DAILY 01/16/22 [History Last Taken Unknown] turmeric 400 mg capsule 400 mg PO DAILY 01/16/22 [History Last Taken Unknown] Allergy/AdvReac Type Severity Reaction Status Date / Time wool Allergy Rash Verified 07/15/22 19:36 erythromycin base AdvReac Upset Verified 07/15/22 19:36 [From E-Mycin] Stomach ibuprofen AdvReac Swelling Verified 07/15/22 19:36 lisinopril AdvReac Unknown Verified 07/15/22 19:36 oxycodone HCl [From Percocet] AdvReac Itching Verified 07/15/22 19:36 Surgical History History of appendectomy History of arthroscopy of shoulder History of back surgery History of bilateral carpal tunnel release History of cholecystectomy History of hip replacement, total History of laminectomy History of neck surgery History of partial thyroidectomy History of wisdom tooth extraction Social History Smoking Status: Former smoker ROS ROS ED Constitutional Constitutional ED: Denies chills, fever(s) or subjective Eyes Eyes: Denies change in vision ENT ENT ED: Denies rhinorrhea or sore throat Cardiovascular Cardiovascular: Denies chest pain or palpitations Respiratory/Chest Respiratory/Chest: Denies cough or dyspnea Gastrointestinal Gastrointestinal: Reports abdominal pain, diarrhea, nausea and other Details: Abdominal distention ; Denies vomiting Genitourinary Genitourinary ED: Denies dysuria or hematuria Musculoskeletal Musculoskeletal: Denies arthralgias or back pain Integumentary Denies abscess Neurologic Neurologic: Denies headache(s) or paresthesias Psychiatric Psychiatric: Denies anxiety or depression EXAM Physical Exam Const Vital Signs: 07/15/22 19:30 07/15/22 20:20 Temperature 97.6 F L Temperature Source Temporal Pulse Rate 80 Respiratory Rate 15 Respiratory Effort Normal Non-Labored Respiratory Pattern Normal Blood Pressure 161/70 H Blood Pressure Mean 100 Pulse Ox 96 Oxygen Delivery Method Room Air Positive well nourished General Appearance ED: NAD; Negative for pallor HEENT Reports moist mucous membranes Eyes PERRL and EOMs intact bilaterally General Eye ED: Negative for pale conjunctiva or scleral icterus Neck no lymphadenopathy Chest Wall inspection of chest normal Resp normal respiratory effort and clear to auscultation bilaterally Auscultation: Negative for rales, rhonchi or wheezes Cardio regular rate and regular rhythm GI GI Narrative: No hernia appreciated Inspection: abdominal distention Auscultation: hyperactive bowel sounds Back/Spine no CVA tenderness Neuro oriented x3 and CN's II-XII intact bilaterally Sensorium / Orientation: alert Motor Exam: strength 5/5 throughout Psych mental status grossly normal Skin no rashes or lesions noted and no wounds General Skin Exam: Negative for jaundice or pallor MDM MDM MDM Narrative Medical decision making narrative: Patient presented with abdominal distention, bloating, diarrhea with nausea. She states he overdid it on Thursday during the holiday and she has had diarrhea since. She felt as if she was hypokalemic so she took 12 tabs of 10 mill equivalents of potassium today. Differential includes gastroenteritis, electrolyte abnormalities, dehydration, small bowel obstruction, colitis, diverticulitis, UTI, pyelonephritis. CBC to assess white blood cell count, hemoglobin, platelets, differential. BMP to assess renal function, electrolytes, glucose, anion gap. CBC came back with a mildly elevated white blood cell count of 12.2 with no significant left shift. Renal function appears normal however the patient is hyperkalemic with a potassium of 5.8. I will obtain an EKG. Patient will be given normal saline. I will obtain a CT of the abdomen pelvis with IV contrast. CT of the abdomen pelvis shows no acute intra-abdominal abnormality. After IV fluids patient will have redraw of her potassium. No EKG changes associated with hyperkalemia. EKG shows a sinus rhythm with occasional PVCs at a rate of 76/min with right bundle branch block on my interpretation. Redraw the potassium is 5.9. Given the amount of potassium that she took and her potassium going up after fluid hydration I we will give her some Kayexalate and talk to the hospitalist for admission. Impression: 1. Diarrhea 2. Abdominal bloating 3. Hyperkalemia 4. Unintentional overdose Lab Data Labs: Laboratory Results - last 24 hr 07/15/22 07/15/22 07/15/22 19:48 19:48 23:17 WBC 12.2 H RBC 4.70 Hgb 13.6 Hct 44.1 MCV 93.8 MCH 28.9 MCHC 30.8 L RDW Std Deviation 54.0 H RDW Coeff of [place] 15.5 H Plt Count 304 MPV 10.7 Immature Gran % (Auto) 0.200 Neut % (Auto) 71.7 H Lymph % (Auto) 14.7 L [place] % (Auto) 8.7 Eos % (Auto) 4.3 Baso % (Auto) 0.4 Absolute Neuts (auto) 8.8 H Absolute Lymphs (auto) 1.80 Nucleated RBC % 0 Sodium 141 Potassium 5.8 H 5.9 H Chloride 113 H Carbon Dioxide 22.0 Anion Gap 6 BUN 15 Creatinine 0.76 Est GFR (MDRD) Af Amer 95 Est GFR (MDRD) Non-Af 79 BUN/Creatinine Ratio 19.6 Glucose 119 H Calcium 9.4 Radiography Diagnostic Testing: Clinical Impression(s) from Imaging Studies Abdomen/Pelvis CT 07/15/22 21:03 IMPRESSION: No acute abnormalities in the abdomen or pelvis. Electronically Signed: Stanton Villarreal MD at 22:27 EDT , Discharge Plan Triage Chief Complaint: General Illness ED Provider: Bean Guadalupe Dx/Rx/DC Orders Prescriptions: No Action ascorbic acid (vitamin C) [Vitamin C] 500 MG tablet 1,000 mg PO DAILY Label Comments: Vitamin supplement. Take with Iron (ferrous sulfate) to improve absorption. levothyroxine 50 MCG tablet 112 mcg PO DAILY Label Comments: Hypothyroid hydrochlorothiazide 25 MG tablet 25 mg PO DAILY Label Comments: Blood pressure, diuretic (water pill) multivitamin with folic acid [Thera] 1 TABLET tablet 1 tab PO DAILY Label Comments: Vitamin supplement potassium chloride [Klor-Con M10] 10 MEQ tablet,ER particles/crystals 10 meq PO BID Label Comments: Potassium supplement mometasone [Nasonex] 1 SPRAY spray,non-aerosol 2 spray NASAL DAILY PRN PRN (Reason: Nasal Congestion) Label Comments: Nasal congestion calcium citrate-vitamin D3 1 EACH tablet 1 ea PO DAILY Label Comments: Calcium supplement gabapentin [Neurontin] 400 MG capsule 1,200 mg PO TID Label Comments: NERVE PAIN esomeprazole magnesium [Nexium] 40 MG capsule 40 mg PO DAILY Label Comments: REFLUX losartan 25 MG tablet 50 mg PO DAILY Label Comments: BP magnesium 250 MG tablet 500 mg PO DAILY Label Comments: SUPPLEMENT oxybutynin chloride [Ditropan XL] 15 MG tablet extended release 24hr 15 mg PO DAILY atorvastatin 10 MG tablet 10 mg PO QHS fexofenadine 180 MG tablet 180 mg PO DINNER folic acid 1 MG tablet 2 mg PO DAILY zinc 50 MG tablet 50 mg PO DAILY Mao's wort 300 MG capsule 300 mg PO DAILY pantothenic acid (vit B5) 500 mg Tablet 500 mg PO DAILY acetaminophen 650 mg Tablet 650 mg PO BID ginkgo biloba 120 mg Tablet 120 mg PO DAILY Rx Instructions: give with meal/snack cranberry extract 500 mg Capsule 500 mg PO DAILY Rx Instructions: administer with meals cinnamon bark [Cinnamon] 500 mg Capsule 2,000 mg PO DAILY alpha lipoic acid 200 mg Tablet 400 mg PO DAILY Chl[place]lla Caps 0.45-9-67 [id number] Capsule 2 cap PO DAILY biotin 5,000 mcg Tablet, Sublingual 5,000 mcg SUBLINGUAL DAILY turmeric 400 mg Capsule 400 mg PO DAILY almita root extract 50 mg Tablet 550 mg PO DAILY Primary Care Provider: Jude Brennan Referrals: Jude Brennan MD [Primary Care Provider] -
[2022-07-15] MEDS: 0.9% Normal Saline 1,000 ML 999 ML IV (21:23)
[2022-07-15 21:24] VITALS: BMI 49.8
[2022-07-15 23:30] VITALS: BP 150/84; PULSE 69; RESP 18; O2SAT 99
[2022-07-15 23:37] LABS: Potassium 5.9 mmol/L (3.5-5.1)
--- NOTE | 2022-07-15 23:55 | PCM.HP.STD ---
[facility] - General General Date of Admission: 07/16/22 Chief Complaint: abdominal cramps HPI Narrative MATHEW OSBORNE, is a 71 F who presents with abdominal bloating and cramping.?There is no vomiting. Did not try anything at home in particular for helping abdominal symptoms. She had a large dinner on Thursday with family including meat/pastas/bbq.? She had a lot of gas and diarrhea since Thursday, going every 2-3 hours which is abnormal for her.? She feels raw from wiping so often. Past surgical history of appendectomy, cholecystectomy and history of a hernia which was not repaired.? Her baseline bowel movements are 2x-3x per day and they are formed. In ED, Denied any fever, chills, body aches.? She associates diarrhea with low potassium, so the patient took Approx 12 potassium pills since thursday in order to fix her low potassium. K on labs was 5.8, then 5.9 on recheck about 3 hrs later. She was given kayexalate in ED. [facility] Medical History Ambulates with cane Diverticulosis Endometrial polyp Former smoker Gastric reflux Heartburn High cholesterol History of hiatal hernia History of meniscal tear History of stress test Restless legs Thyroid disease Wears glasses Home Medications ascorbic acid (vitamin C) 500 mg tablet (Vitamin C) 1,000 mg PO DAILY 11/22/12 [History Last Taken 12/29/12 08:00] levothyroxine 50 mcg tablet 112 mcg PO DAILY 11/22/12 [History Last Taken 01/23/22 04:00] hydrochlorothiazide 25 mg tablet 25 mg PO DAILY 12/29/12 [History Last Taken 12/29/12 08:00] multivitamin with folic acid 400 mcg tablet (Thera) 1 tab PO DAILY 12/29/12 [History Last Taken 12/29/12 08:00] calcium citrate 315 mg calcium-vitamin D3 6.25 mcg (250 unit) tablet 1 ea PO DAILY 11/17/13 [History Last Taken Unknown] mometasone 50 mcg/actuation nasal spray (Nasonex) 2 spray DAILY PRN PRN Nasal Congestion 11/17/13 [History Last Taken Unknown] potassium chloride 10 mEq tablet,extended release(part/cryst) (Klor-Con M) 10 meq PO BID 11/17/13 [History Last Taken Unknown] esomeprazole magnesium 40 mg capsule,delayed release (Nexium) 40 mg PO DAILY 07/29/16 [History Last Taken 01/23/22 04:00] gabapentin 400 mg capsule (Neurontin) 1,200 mg PO TID 07/29/16 [History Last Taken 01/23/22 04:00] losartan 25 mg tablet 50 mg PO DAILY 07/29/16 [History Last Taken 01/23/22 04:00] magnesium 250 mg tablet 500 mg PO DAILY 07/29/16 [History Last Taken Unknown] oxybutynin chloride 15 mg tablet,extended release 24 hr (Ditropan XL) 15 mg PO DAILY 07/31/16 [History Last Taken Unknown] [place]'s wort 300 mg capsule 300 mg PO DAILY 02/18/20 [History Last Taken Unknown] atorvastatin 10 mg tablet 10 mg PO QHS 02/18/20 [History Last Taken Unknown] fexofenadine 180 mg tablet 180 mg PO DINNER 02/18/20 [History Last Taken Unknown] folic acid 1 mg tablet 2 mg PO DAILY 02/18/20 [History Last Taken Unknown] zinc 50 mg tablet 50 mg PO DAILY 02/18/20 [History Last Taken Unknown] acetaminophen 650 mg tablet 650 mg PO BID 01/16/22 [History Last Taken Unknown] alpha lipoic acid 200 mg tablet 400 mg PO DAILY 01/16/22 [History Last Taken Unknown] biotin 5,000 mcg sublingual tablet 5,000 mcg sublingual DAILY 01/16/22 [History Last Taken Unknown] erbbdraoq-wsybaohnbg-D5-B2-folic acid-iron 0.45 gram-9 mg-67 unit cap 2 cap PO DAILY 01/16/22 [History Last Taken Unknown] cinnamon bark 500 mg capsule (Cinnamon) 2,000 mg PO DAILY 01/16/22 [History Last Taken Unknown] cranberry extract 500 mg capsule 500 mg PO DAILY 01/16/22 [History Last Taken Unknown] almita root extract 50 mg tablet 550 mg PO DAILY 01/16/22 [History Last Taken Unknown] ginkgo biloba 120 mg tablet 120 mg PO DAILY 01/16/22 [History Last Taken Unknown] pantothenic acid (vit B5) 500 mg tablet 500 mg PO DAILY 01/16/22 [History Last Taken Unknown] turmeric 400 mg capsule 400 mg PO DAILY 01/16/22 [History Last Taken Unknown] Allergy/AdvReac Type Severity Reaction Status Date / Time wool Allergy Rash Verified 07/15/22 19:36 erythromycin base AdvReac Upset Verified 07/15/22 19:36 [From E-Mycin] Stomach ibuprofen AdvReac Swelling Verified 07/15/22 19:36 lisinopril AdvReac Unknown Verified 07/15/22 19:36 oxycodone HCl [From Percocet] AdvReac Itching Verified 07/15/22 19:36 Surgical History History of appendectomy History of arthroscopy of shoulder History of back surgery History of bilateral carpal tunnel release History of cholecystectomy History of hip replacement, total History of laminectomy History of neck surgery History of partial thyroidectomy History of wisdom tooth extraction Social History Smoking Status: Former smoker ROS ROS Narrative pertinent positives and negatives per HPI Vital Signs Vital Signs Vital Signs: 07/15/22 19:30 07/15/22 20:20 Temperature 97.6 F L Temperature Source Temporal Pulse Rate 80 Respiratory Rate 15 Respiratory Effort Normal Non-Labored Respiratory Pattern Normal Blood Pressure 161/70 H Blood Pressure Mean 100 Pulse Ox 96 Oxygen Delivery Method Room Air Weight Weight: 222 lb 7.143 oz Body Mass Index (BMI) 49.8 Physical Exam Const alert and no apparent distress HEENT normocephalic and head/scalp atraumatic Resp normal respiratory effort and no retractions Cardio regular rate and regular rhythm GI normal to inspection, nondistended, normoactive bowel sounds Extremity Extremity Narrative: She has signs of venous stasis bilaterally. Psych affect normal Results Medical Records Data Attestation: I reviewed the patient's medical records Lab / Micro Data Attestation: I reviewed the patient's lab results. Result Diagrams: 07/15/22 19:48 07/15/22 23:17 Labs: Laboratory Results - last 24 hr 07/15/22 19:48: WBC 12.2 H, RBC 4.70, Hgb 13.6, Hct 44.1, MCV 93.8, MCH 28.9, MCHC 30.8 L, RDW Std Deviation 54.0 H, RDW Coeff of [place] 15.5 H, Plt Count 304, MPV 10.7, Immature Gran % (Auto) 0.200, Neut % (Auto) 71.7 H, Lymph % (Auto) 14.7 L, [place] % (Auto) 8.7, Eos % (Auto) 4.3, Baso % (Auto) 0.4, Absolute Neuts (auto) 8.8 H, Absolute Lymphs (auto) 1.80, Nucleated RBC % 0 07/15/22 19:48: Sodium 141, Potassium 5.8 H, Chloride 113 H, Carbon Dioxide 22.0, Anion Gap 6, BUN 15, Creatinine 0.76, Est GFR (MDRD) Af Amer 95, Est GFR (MDRD) Non-Af 79, BUN/Creatinine Ratio 19.6, Glucose 119 H, Calcium 9.4 07/15/22 23:17: Potassium 5.9 H Radiology Impression Abdomen/Pelvis CT 07/15/22 21:03 IMPRESSION: No acute abnormalities in the abdomen or pelvis. Electronically Signed: Stanton Villarreal MD at 22:27 EDT , Assessment & Plan Assessment/Plan (1) Hypothyroidism: (2) Hypertension: (3) Hyperkalemia: PLAN: Plan Acute hyperkalemia due to ingestion - Given one dose of Kayexalate - normal creatinine, no concern for renal injury presently. - EKG revealed, no peaked waves or changes. - Low potassium diet - check Potassium in 4 hrs - Will continue on Fluids - Monitor with tele HTN - Resume home BP medication Charges/Coding Visit Charges Inpatient E&M: 04320 Init Hosp L2
[2022-07-16] MEDS: Sodium Polystyrene Sulfonate 15 GM/60 ML UDC 30 GM PO (00:41)
[2022-07-16 00:43] VITALS: BP 155/85; PULSE 69; RESP 18; TEMP 36.6; O2SAT 99
[2022-07-16 01:18] VITALS: BP 177/81; PULSE 72; RESP 20; TEMP 36.6; O2SAT 100
[2022-07-16 01:19] VITALS: BMI 46.5
[2022-07-16] MEDS: Gabapentin 600 MG Tablet 1200 MG PO ×3 (05:23→21:17)
[2022-07-16 05:24] VITALS: BP 134/70; PULSE 71; RESP 18; TEMP 36.2; O2SAT 97
[2022-07-16] MEDS: Levothyroxine 112 MCG Tablet PO (05:24)
[2022-07-16 06:32] LABS: Anion Gap 6 (5-15); BUN 13 mg/dL (7-18); BUN/Creat Ratio 17.4 RATIO (10-20); Calcium,Total 8.8 mg/dL (8.5-10.1); Chloride 118 mmol/L (98-107); Creatinine, Serum 0.74 mg/dL (0.55-1.02); EST Glomerular Filtration Rate 81 mL/min (>60); Est Glom Filt Rate - Afr Amer 98 mL/min (>60); Estimated Creatinine Clearance 77.12 ml/min; Glucose 117 mg/dL (74-106); Potassium 5.1 mmol/L (3.5-5.1); Sodium Level 140 mmol/L (136-145)
--- NOTE | 2022-07-16 06:59 | PCM.HOSP.N ---
Hospitalist Note Regarding new diarrhea, did send stool testing and giardia. I would not think this is infectious based on symptoms but will rule it out. No risk factors for C diff but keep in differential.
--- NOTE | 2022-07-16 08:07 | PCM.PN.HOSP ---
Reason for Visit Reason for Visit: Diagnoses Hypothyroidism, unspecified (07/16/22) Hyperkalemia (07/16/22) Essential (primary) hypertension (07/16/22) Subjective Subjective Follow-up for continued diarrhea every couple hours. Denies abdominal pain. Patient had severe prolonged diarrhea many years ago probably more than 10 years ago. She also had colonoscopy more than 10 years ago. Objective Data Objective Data Vital Signs: Vital Signs Temp Pulse Resp BP Pulse Ox O2 Del Method 97.2 F L 71 18 134/70 H 97 Room Air 07/16/22 05:24 07/16/22 05:24 07/16/22 05:24 07/16/22 05:24 07/16/22 05:24 07/16/22 05:24 Oxygen Delivery Method Room Air Weight: 214 lb 15.211 oz Body Mass Index (BMI) 46.5 Intake & Output: Intake and Output for Last 24 Hours 07/14/22 07/15/22 07/16/22 23:59 23:59 23:59 Intake Total 1000 / 1000 200 / 200 Balance 1000 / 1000 200 / 200 Lab / Micro Data Result Diagrams: 07/15/22 19:48 07/16/22 05:36 Labs: Laboratory Results - last 24 hr 07/15/22 19:48: WBC 12.2 H, RBC 4.70, Hgb 13.6, Hct 44.1, MCV 93.8, MCH 28.9, MCHC 30.8 L, RDW Std Deviation 54.0 H, RDW Coeff of [place] 15.5 H, Plt Count 304, MPV 10.7, Immature Gran % (Auto) 0.200, Neut % (Auto) 71.7 H, Lymph % (Auto) 14.7 L, [place] % (Auto) 8.7, Eos % (Auto) 4.3, Baso % (Auto) 0.4, Absolute Neuts (auto) 8.8 H, Absolute Lymphs (auto) 1.80, Nucleated RBC % 0 07/15/22 19:48: Sodium 141, Potassium 5.8 H, Chloride 113 H, Carbon Dioxide 22.0, Anion Gap 6, BUN 15, Creatinine 0.76, Est GFR (MDRD) Af Amer 95, Est GFR (MDRD) Non-Af 79, BUN/Creatinine Ratio 19.6, Glucose 119 H, Calcium 9.4 07/15/22 23:17: Potassium 5.9 H 07/16/22 05:36: Sodium 140, Potassium 5.1, Chloride 118 H, Carbon Dioxide 16.0 L, Anion Gap 6, BUN 13, Creatinine 0.74, Estim Creat Clear Calc 77.12, Est GFR (MDRD) Af Amer 98, Est GFR (MDRD) Non-Af 81, BUN/Creatinine Ratio 17.4, Glucose 117 H, Calcium 8.8 Radiography Diagnostic Testing: Radiology Impression Abdomen/Pelvis CT 07/15/22 21:03 IMPRESSION: No acute abnormalities in the abdomen or pelvis. Electronically Signed: Stanton Villarreal MD at 22:27 EDT , Physical Exam Narrative Physical exam General: Alert, Oriented x3, Cooperative, morbid obesity BMI 46.5 kg/m? HEENT: Atraumatic, PERRLA, EOMI, Normocephalic Oral: Oral mucosa moist. No Gingival or Mucosal Lesions/ Ulcerations Neck: Supple, No JVD, Negative Carotid Bruits Lungs: Air entry diminished in bilateral lung bases. No crepitation/rhonchi Cardiovascular: Regular rate, Regular Rhythm, Normal S1, Normal S2, No murmurs Abdomen: Bowel Sounds hyper, Soft, Non Tender, Non-Distended : No renal angle tenderness. No suprapubic tenderness. Extremities: No edema, Capillary Refill Less than 3 Seconds Skin: No rashes, No breakdown Musculoskeletal: No Tenderness to Palpation of Joints or Extremities Neurological: Cranial nerves II-XII grossly intact, DTR 2+/4 and Symmetrical, Neuro grossly intact Psych/Mental Status: Normal Affect, Appropriate. Assessment & Plan Assessment/Plan (1) Hypothyroidism: (2) Hypertension: (3) Hyperkalemia: PLAN: Plan 1. Subacute diarrhea 07/13/2022 night, exact etiology unclear: Patient admitted in PCU. She said she had large heavy meal with meat [employer] on Thursday night. She had abdominal bloating cramping and then diarrhea started. Patient also had Kayexalate in ED for hyperkalemia. Enteric bacteriology panel, and C. difficile are negative. Stool for Giardia antigen pending She denies prior history of persistent or chronic diarrhea but he states she had diarrhea more than 10 years ago. Colonoscopy more than 10 years ago was also not abnormal as per the patient. Denies history of celiac disease. Continue IV fluid half-normal saline. 2. Acute hyperkalemia due to ingestion repeat potassium normal after 1 dose of Kayexalate. Normal creatinine. EKG showed no peaked T waves or changes of hyperkalemia. Low potassium diet. Repeat potassium is 5.1 3. HTN - Resume home BP medication Microbiology Past 72 Hours 07/16/22 07:00 Stool C. difficile GDH Antigen & Toxins - Final 07/16/22 02:00 Stool Enteric Bacteriology - Final Laboratory Results 07/15/22 19:48: WBC 12.2 H, RBC 4.70, Hgb 13.6, Hct 44.1, MCV 93.8, MCH 28.9, MCHC 30.8 L, RDW Std Deviation 54.0 H, RDW Coeff of [place] 15.5 H, Plt Count 304, MPV 10.7, Immature Gran % (Auto) 0.200, Neut % (Auto) 71.7 H, Lymph % (Auto) 14.7 L, [place] % (Auto) 8.7, Eos % (Auto) 4.3, Baso % (Auto) 0.4, Absolute Neuts (auto) 8.8 H, Absolute Lymphs (auto) 1.80, Nucleated RBC % 0 07/15/22 19:48: Sodium 141, Potassium 5.8 H, Chloride 113 H, Carbon Dioxide 22.0, Anion Gap 6, BUN 15, Creatinine 0.76, Est GFR (MDRD) Af Amer 95, Est GFR (MDRD) Non-Af 79, BUN/Creatinine Ratio 19.6, Glucose 119 H, Calcium 9.4 07/15/22 23:17: Potassium 5.9 H 07/16/22 02:00: Stl Giardia Antigen Pending 07/16/22 05:36: Sodium 140, Potassium 5.1, Chloride 118 H, Carbon Dioxide 16.0 L, Anion Gap 6, BUN 13, Creatinine 0.74, Estim Creat Clear Calc 77.12, Est GFR (MDRD) Af Amer 98, Est GFR (MDRD) Non-Af 81, BUN/Creatinine Ratio 17.4, Glucose 117 H, Calcium 8.8 Charges/Coding Visit Charges Inpatient E&M: 83724 Subs Hosp L2
[2022-07-16 09:15] VITALS: BP 128/80; PULSE 89; RESP 18; TEMP 36.5; O2SAT 99
[2022-07-16] MEDS: Acetaminophen 325 MG Tablet 650 MG PO ×2 (09:25→21:17)
[2022-07-16] MEDS: Multivitamins,Therapeutic Tablet 1 TABLET PO (09:26)
[2022-07-16] MEDS: hydroCHLOROthiazide 25 MG Tablet PO (09:26)
[2022-07-16] MEDS: Losartan Potassium 50 MG Tablet PO (09:26)
[2022-07-16] MEDS: Pantoprazole Sodium 40 MG Tablet PO (09:26)
[2022-07-16] MEDS: Magnesium Chloride 64 MG Delay Rel.Tablet 128 MG PO (09:34)
[2022-07-16] MEDS: Folic Acid 1 MG Tablet 2 MG PO (09:34)
[2022-07-16] MEDS: Sodium Bicarbonate 650 MG Tablet PO ×4 (11:06→21:17)
[2022-07-16] MEDS: 0.45% Normal Saline 1,000 ML 100 ML IV ×2 (11:30→20:46)
[2022-07-16 15:15] VITALS: BP 130/70; PULSE 58; RESP 18; TEMP 36.8; O2SAT 98
[2022-07-16] MEDS: Atorvastatin Calcium 10 MG Tablet PO (21:17)
[2022-07-16 21:20] VITALS: BP 131/65; PULSE 67; RESP 18; TEMP 36.6; O2SAT 98
[2022-07-17 03:15] VITALS: BP 126/64; PULSE 70; RESP 18; TEMP 36.6; O2SAT 98
[2022-07-17] MEDS: Gabapentin 600 MG Tablet 1200 MG PO (05:29)
[2022-07-17] MEDS: Levothyroxine 112 MCG Tablet PO (05:29)
[2022-07-17 06:23] LABS: Absolute Neutrophil Count 6.5 X10^3/uL (2.0-7.7); Basophil# 0.03 X10^3/uL; Basophil% 0.3 % (0-1); Eosinophil# 0.44 X10^3/uL; Eosinophils% 4.5 % (0-5); Hemoglobin 12.4 g/dL (12.0-15.0); Lymphocyte % 21.3 % (19-41); Mean Corp Hgb Conc 31.8 g/dL (32-36); Mean Corpuscular Hgb 29.6 pg (27.0-32.0); Mean Corpuscular Volume 93.1 fL (81-99); Mean Platelet Vol. 10.6 fl (6.2-12.0); Monocyte% 7.1 % (0-10); NRBC Flagged by Analyzer 0 % (0-5); Neutrophil # 6.54 X10^3/uL (2.7-7.7); Neutrophil % 66.3 % (47-70); Platelet Count 235 K/mm3 (150-450); RBC Distribution Width CV 15.8 % (11.6-14.6); RBC Distribution Width SD 53.8 fl (35.1-43.9); Red Blood Count 4.19 M/mm3 (4.2-5.4); White Blood Count 9.9 K/mm3 (4.4-11.0)
[2022-07-17 06:50] LABS: Anion Gap 6 (5-15); BUN 14 mg/dL (7-18); BUN/Creat Ratio 20.7 RATIO (10-20); Calcium,Total 8.4 mg/dL (8.5-10.1); Chloride 110 mmol/L (98-107); Creatinine, Serum 0.68 mg/dL (0.55-1.02); EST Glomerular Filtration Rate 90 mL/min (>60); Est Glom Filt Rate - Afr Amer 109 mL/min (>60); Estimated Creatinine Clearance 77.12 ml/min; Glucose 93 mg/dL (74-106); Potassium 3.7 mmol/L (3.5-5.1); Sodium Level 140 mmol/L (136-145)
[2022-07-17 07:41] VITALS: BP 127/55; PULSE 65; RESP 14; TEMP 36.6; O2SAT 95
[2022-07-17] MEDS: Folic Acid 1 MG Tablet 2 MG PO (09:10)
[2022-07-17] MEDS: Acetaminophen 325 MG Tablet 650 MG PO (09:10)
[2022-07-17] MEDS: Sodium Bicarbonate 650 MG Tablet PO (09:11)
[2022-07-17] MEDS: Magnesium Chloride 64 MG Delay Rel.Tablet 128 MG PO (09:11)
[2022-07-17] MEDS: Multivitamins,Therapeutic Tablet 1 TABLET PO (09:11)
[2022-07-17] MEDS: Losartan Potassium 50 MG Tablet PO (09:11)
[2022-07-17] MEDS: Pantoprazole Sodium 40 MG Tablet PO (09:11)
--- NOTE | 2022-07-17 10:06 | DCINST_ITS ---
Discharge Instructions Diet Discharge Diet: - (Soft diet for next 5 days. No chewy or hard meat for next 5 days.) Activity Discharge Activity: Return to Normal Activity Weight Bearing Status: Weight bearing as tolerated Dressing / Incision Call your doctor if you observe: Fever of 101 or Higher, Coldness, Increased Pain, Numbness or Tingling, Change in Color, Inability to urinate, Inability to have a bowel movement, Using more than 1 pad per hour, Shortness of breath, Dizziness, Fainting spells, Swelling in the ankles, Chest pain, Prolonged hiccupping, Increased palpitations (irregular heartbeat) and Calf discomfort Follow Up Care When: IN 2 WEEKS Test Results: Test results from this visit will be discussed in further detail at your follow- up appointment, if applicable. Discharge Plan Admission Admit Date/Time: 07/16/22 14:13 Primary Reason for Your Visit: Acute diarrhea Attending Provider: Nahum Albrecht Primary Care Provider: Jude Brennan Consulting Providers: Marcelino Unger Discharge Orders/Prescriptions Prescriptions: Continued ascorbic acid (vitamin C) [Vitamin C] 500 MG tablet 1,000 mg PO DAILY Label Comments: Vitamin supplement. Take with Iron (ferrous sulfate) to improve absorption. levothyroxine 50 MCG tablet 112 mcg PO DAILY Label Comments: Hypothyroid multivitamin with folic acid [Thera] 1 TABLET tablet 1 tab PO DAILY Label Comments: Vitamin supplement potassium chloride [Klor-Con M10] 10 MEQ tablet,ER particles/crystals 10 meq PO BID Label Comments: Potassium supplement mometasone [Nasonex] 1 SPRAY spray,non-aerosol 2 spray NASAL DAILY PRN PRN (Reason: Nasal Congestion) Label Comments: Nasal congestion calcium citrate-vitamin D3 1 EACH tablet 1 ea PO DAILY Label Comments: Calcium supplement gabapentin [Neurontin] 400 MG capsule 1,200 mg PO TID Label Comments: NERVE PAIN esomeprazole magnesium [Nexium] 40 MG capsule 40 mg PO DAILY Label Comments: REFLUX losartan 25 MG tablet 50 mg PO DAILY Label Comments: BP magnesium 250 MG tablet 500 mg PO DAILY Label Comments: SUPPLEMENT oxybutynin chloride [Ditropan XL] 15 MG tablet extended release 24hr 15 mg PO DAILY atorvastatin 10 MG tablet 10 mg PO QHS folic acid 1 MG tablet 2 mg PO DAILY zinc 50 MG tablet 50 mg PO DAILY [place]'s wort 300 MG capsule 300 mg PO DAILY pantothenic acid (vit B5) 500 mg Tablet 500 mg PO DAILY acetaminophen 650 mg Tablet 650 mg PO BID ginkgo biloba 120 mg Tablet 120 mg PO DAILY Rx Instructions: give with meal/snack cranberry extract 500 mg Capsule 500 mg PO DAILY Rx Instructions: administer with meals cinnamon bark [Cinnamon] 500 mg Capsule 2,000 mg PO DAILY alpha lipoic acid 200 mg Tablet 400 mg PO DAILY [id number]-iron [id number] Capsule 2 cap PO DAILY biotin 5,000 mcg Tablet, Sublingual 5,000 mcg SUBLINGUAL DAILY turmeric 400 mg Capsule 400 mg PO DAILY almita root extract 50 mg Tablet 550 mg PO DAILY Changed fexofenadine [Olga Lidia Allergy] 180 MG tablet 180 mg PO DINNER PRN (Reason: rhinitis) 30 Days Qty: 0 0RF Held hydrochlorothiazide 25 MG tablet 25 mg PO DAILY Hold Instructions: Hold for 3 days. Label Comments: Blood pressure, diuretic (water pill) Referrals / Follow Up: Jude Brennan MD [Primary Care Provider] - FriendMatt DO [Med Staff - Active Staff] - Within 1 Month Disposition Disposition (needs filled in before D/C Order can be placed): Home, Self Care
--- NOTE | 2022-07-17 10:11 | DS.PCM_ITS ---
Providers Date of Admission: 07/16/22 Date of Discharge: 07/17/22 Primary Care Physician: Dr. Jude Brennan MD Reason For Visit: ASYMPTOMATIC HYPERKALEMIA Diagnosis Discharge Diagnosis (1) Hypothyroidism: Status: Chronic Code(s): E03.9 - Hypothyroidism, unspecified (2) Hypertension: Status: Chronic Code(s): I10 - Essential (primary) hypertension (3) Hyperkalemia: Status: Acute Code(s): E87.5 - Hyperkalemia Plan 71-year-old female was admitted for continued diarrhea every couple hours after heavy meal on Thursday dinner, 3 days ago. No bloody or mucus-like diarrhea, therefore no dysentery. No fever. Denies abdominal pain. 1. Acute/subacute diarrhea 07/13/2022 night, exact etiology unclear seems noninfectious: Patient admitted in PCU. She said she had large heavy meal with meat [employer] on Thursday night. She had abdominal bloating cramping and then diarrhea started. Patient also had Kayexalate in ED for hyperkalemia. Enteric bacteriology panel, and C. difficile are negative. Stool for Giardia antigen pending She denies prior history of persistent or chronic diarrhea but he states she had diarrhea more than 10 years ago. Colonoscopy more than 10 years ago was also not abnormal as per the patient. Denies history of celiac disease. Continue IV fluid half-normal saline. 07/17: Diarrhea resolved. Stool for Giardia antigen is still pending. Patient had a small formed stool in the morning today but no liquid bowel movement since yesterday morning. Currently patient having mild headache probably positional as she has history of cervical/chronic neck pain/arthritis. She is feeling slightly better after Tylenol. Patient agreeable for discharge after headache is better. No leukocytosis. Advised follow-up with web page developer in 1 month. 2. Acute hyperkalemia due to ingestion repeat potassium normal after 1 dose of Kayexalate. Normal creatinine. EKG showed no peaked T waves or changes of hyperkalemia. Low potassium diet. Repeat potassium is 5.1. 07/17: Repeat potassium is 3.7. Bicarb normal 24. Anion gap 6. Serum sodium 140. Electrolytes are in normal range except chloride 110. 3. HTN - Resume home BP medication Discharge medication reconciliation done. Discharge follow-up instructions completed. Discharge process discussed with the patient and all questions were answered to patient's satisfaction. Total time spent, exact 35 minutes on discharge meds reconciliation, examination, coordination of care with nurses and ancillary staff, review of imaging and blood test and discussion with the patient on follow-up instructions. Microbiology Past 72 Hours 07/16/22 07:00 Stool C. difficile [facility] Antigen & Toxins - Final 07/16/22 02:00 Stool Enteric Bacteriology - Final Laboratory Results 07/17/22 06:00: Sodium 140, Potassium 3.7, Chloride 110 H, Carbon Dioxide 24.0, Anion Gap 6, BUN 14, Creatinine 0.68, Estim Creat Clear Calc 77.12, Est GFR (MDRD) Af Amer 109, Est GFR (MDRD) Non-Af 90, BUN/Creatinine Ratio 20.7 H, Glucose 93, Calcium 8.4 L 07/17/22 06:00: WBC 9.9, RBC 4.19 L, Hgb 12.4, Hct 39.0, MCV 93.1, MCH 29.6, MCHC 31.8 L, RDW Std Deviation 53.8 H, RDW Coeff of [place] 15.8 H, Plt Count 235, MPV 10.6, Immature Gran % (Auto) 0.500, Neut % (Auto) 66.3, Lymph % (Auto) 21.3, [place] % (Auto) 7.1, Eos % (Auto) 4.5, Baso % (Auto) 0.3, Absolute Neuts (auto) 6.5, Absolute Lymphs (auto) 2.10, Nucleated RBC % 0 Medications at Discharge Home Medications ascorbic acid (vitamin C) 500 mg tablet (Vitamin C) 1,000 mg PO DAILY vitamin 11/22/12 levothyroxine 50 mcg tablet 112 mcg PO DAILY thyroid 11/22/12 hydrochlorothiazide 25 mg tablet 25 mg PO DAILY diuretic 12/29/12 multivitamin with folic acid 400 mcg tablet (Thera) 1 tab PO DAILY vitamin 12/29/12 calcium citrate 315 mg calcium-vitamin D3 6.25 mcg (250 unit) tablet 1 ea PO DAILY vitamin 11/17/13 mometasone 50 mcg/actuation nasal spray (Nasonex) 2 spray DAILY PRN PRN Nasal Congestion 11/17/13 potassium chloride 10 mEq tablet,extended release(part/cryst) (Klor-Con M) 10 meq PO BID supplement 11/17/13 esomeprazole magnesium 40 mg capsule,delayed release (Nexium) 40 mg PO DAILY r eflux 07/29/16 gabapentin 400 mg capsule (Neurontin) 1,200 mg PO TID nerve pain 07/29/16 losartan 25 mg tablet 50 mg PO DAILY blood pressure 07/29/16 magnesium 250 mg tablet 500 mg PO DAILY supplement 07/29/16 oxybutynin chloride 15 mg tablet,extended release 24 hr (Ditropan XL) 15 mg PO DAILY urine 07/31/16 [place]'s wort 300 mg capsule 300 mg PO DAILY supplement 02/18/20 atorvastatin 10 mg tablet 10 mg PO QHS cholesterol 02/18/20 folic acid 1 mg tablet 2 mg PO DAILY supplement 02/18/20 zinc 50 mg tablet 50 mg PO DAILY supplement 02/18/20 acetaminophen 650 mg tablet 650 mg PO BID pain 01/16/22 alpha lipoic acid 200 mg tablet 400 mg PO DAILY supplement 01/16/22 biotin 5,000 mcg sublingual tablet 5,000 mcg sublingual DAILY supplement 01/16/22 petcuvzzt-rxiyjhpdwi-J7-B2-folic acid-iron 0.45 gram-9 mg-67 unit cap 2 cap PO DAILY supplement 01/16/22 cinnamon bark 500 mg capsule (Cinnamon) 2,000 mg PO DAILY supplement 01/16/22 cranberry extract 500 mg capsule 500 mg PO DAILY supplement 01/16/22 almita root extract 50 mg tablet 550 mg PO DAILY supplement 01/16/22 ginkgo biloba 120 mg tablet 120 mg PO DAILY supplement 01/16/22 pantothenic acid (vit B5) 500 mg tablet 500 mg PO DAILY vitamin 01/16/22 turmeric 400 mg capsule 400 mg PO DAILY supplement 01/16/22 fexofenadine 180 mg tablet (Olga Lidia Allergy) 180 mg PO DINNER PRN rhinitis 30 days #0 tabs 07/17/22 Physical Exam Narrative Diarrhea has resolved. No abdominal pain. Mild headache and neck pain, chronic getting better; as described above. Physical exam General: Alert, Oriented x3, Cooperative, morbid obesity BMI 46.5 kg/m? HEENT: Atraumatic, PERRLA, EOMI, Normocephalic Oral: Oral mucosa moist. No Gingival or Mucosal Lesions/ Ulcerations Neck: Supple, No JVD, Negative Carotid Bruits Lungs: Air entry diminished in bilateral lung bases. No crepitation/rhonchi Cardiovascular: Regular rate, Regular Rhythm, Normal S1, Normal S2, No murmurs Abdomen: Bowel Sounds hyper, Soft, Non Tender, Non-Distended : No renal angle tenderness. No suprapubic tenderness. Extremities: No edema, Capillary Refill Less than 3 Seconds Skin: No rashes, No breakdown Musculoskeletal: No Tenderness to Palpation of Joints or Extremities Neurological: Cranial nerves II-XII grossly intact, DTR 2+/4 and Symmetrical, Neuro grossly intact Psych/Mental Status: Flat affect. Weight / BMI Weight Weight: 214 lb 15.211 oz Body Mass Index (BMI) 46.5 ABG / Lab / Microbiology Data Result Diagrams: 07/17/22 06:00 07/17/22 06:00 Laboratory: Laboratory Results - last 24 hr 07/17/22 06:00: Sodium 140, Potassium 3.7, Chloride 110 H, Carbon Dioxide 24.0, Anion Gap 6, BUN 14, Creatinine 0.68, Estim Creat Clear Calc 77.12, Est GFR (MDRD) Af Amer 109, Est GFR (MDRD) Non-Af 90, BUN/Creatinine Ratio 20.7 H, Glucose 93, Calcium 8.4 L 07/17/22 06:00: WBC 9.9, RBC 4.19 L, Hgb 12.4, Hct 39.0, MCV 93.1, MCH 29.6, MCHC 31.8 L, RDW Std Deviation 53.8 H, RDW Coeff of [place] 15.8 H, Plt Count 235, MPV 10.6, Immature Gran % (Auto) 0.500, Neut % (Auto) 66.3, Lymph % (Auto) 21.3, [place] % (Auto) 7.1, Eos % (Auto) 4.5, Baso % (Auto) 0.3, Absolute Neuts (auto) 6.5, Absolute Lymphs (auto) 2.10, Nucleated RBC % 0 Microbiology: Microbiology 07/16/22 07:00 Stool C. difficile GDH Antigen & Toxins - Final 07/16/22 02:00 Stool Enteric Bacteriology - Final D/C Instructions Discharge Diet: - (Soft diet for next 5 days. No chewy or hard meat for next 5 days.) Weight Bearing Status: Weight bearing as tolerated Call your doctor if you observe: Fever of 101 or Higher, Coldness, Increased Pain, Numbness or Tingling, Change in Color, Inability to urinate, Inability to have a bowel movement, Using more than 1 pad per hour, Shortness of breath, Dizziness, Fainting spells, Swelling in the ankles, Chest pain, Prolonged h iccupping, Increased palpitations (irregular heartbeat) and Calf discomfort When: IN 2 WEEKS Meaningful Use Info Meaningful Use Diagnoses (Choose all that apply): None applicable Discharge Plan Admission Admit Date/Time: 07/16/22 14:13 Primary Reason for Your Visit: Acute diarrhea Attending Provider: Nahum Albrecht Primary Care Provider: Jude Brennan Consulting Providers: Marcelino Unger Discharge Orders/Prescriptions Prescriptions: Continued ascorbic acid (vitamin C) [Vitamin C] 500 MG tablet 1,000 mg PO DAILY Label Comments: Vitamin supplement. Take with Iron (ferrous sulfate) to improve absorption. levothyroxine 50 MCG tablet 112 mcg PO DAILY Label Comments: Hypothyroid multivitamin with folic acid [Thera] 1 TABLET tablet 1 tab PO DAILY Label Comments: Vitamin supplement potassium chloride [Klor-Con M10] 10 MEQ tablet,ER particles/crystals 10 meq PO BID Label Comments: Potassium supplement mometasone [Nasonex] 1 SPRAY spray,non-aerosol 2 spray NASAL DAILY PRN PRN (Reason: Nasal Congestion) Label Comments: Nasal congestion calcium citrate-vitamin D3 1 EACH tablet 1 ea PO DAILY Label Comments: Calcium supplement gabapentin [Neurontin] 400 MG capsule 1,200 mg PO TID Label Comments: NERVE PAIN esomeprazole magnesium [Nexium] 40 MG capsule 40 mg PO DAILY Label Comments: REFLUX losartan 25 MG tablet 50 mg PO DAILY Label Comments: BP magnesium 250 MG tablet 500 mg PO DAILY Label Comments: SUPPLEMENT oxybutynin chloride [Ditropan XL] 15 MG tablet extended release 24hr 15 mg PO DAILY atorvastatin 10 MG tablet 10 mg PO QHS folic acid 1 MG tablet 2 mg PO DAILY zinc 50 MG tablet 50 mg PO DAILY [place]'s wort 300 MG capsule 300 mg PO DAILY pantothenic acid (vit B5) 500 mg Tablet 500 mg PO DAILY acetaminophen 650 mg Tablet 650 mg PO BID ginkgo biloba 120 mg Tablet 120 mg PO DAILY Rx Instructions: give with meal/snack cranberry extract 500 mg Capsule 500 mg PO DAILY Rx Instructions: administer with meals cinnamon bark [Cinnamon] 500 mg Capsule 2,000 mg PO DAILY alpha lipoic acid 200 mg Tablet 400 mg PO DAILY [id number]-ilzegmjw-[id number]-FA-iron 0.45-9-67 [id number] Capsule 2 cap PO DAILY biotin 5,000 mcg Tablet, Sublingual 5,000 mcg SUBLINGUAL DAILY turmeric 400 mg Capsule 400 mg PO DAILY almita root extract 50 mg Tablet 550 mg PO DAILY Changed fexofenadine [Olga Lidia Allergy] 180 MG tablet 180 mg PO DINNER PRN (Reason: rhinitis) 30 Days Qty: 0 0RF Held hydrochlorothiazide 25 MG tablet 25 mg PO DAILY Hold Instructions: Hold for 3 days. Label Comments: Blood pressure, diuretic (water pill) Referrals / Follow Up: Matt Johnson DO [Med Staff - Active Staff] - Within 1 Month Jude Brennan MD [Primary Care Provider] - Disposition Disposition (needs filled in before D/C Order can be placed): Home, Self Care Charges/Coding Visit Charges Inpatient E&M: 18232 Disch Hosp >30min
--- NOTE | 2022-07-17 10:50 | CASEMGMT ---
[facility] Face to Face with patient for initial transition planning/care coordination assessment. RN CM introduced self and role at [facility]. Patient lying in bed, alert and oriented. Patient willing to participate in assessment and is able to answer all questions appropriately. Care providers, pharmacy, and demographics verified. Patient wishes to discharge home, denies need for home health at this time. Patient states she has no further needs or concerns at this time. CM to follow for discharge planning needs that may arise. PCP: Mika Specialists: [facility] Preferred Pharmacy: [facility] Insurance: Josu[employer] Prescription Benefit: yes Living Will/HPOA: yes, step daughter Herminia Markham LNOK: stepson and stepdaughter Living Arrangements: Patient lives alone in a split level home. Patient states she is independent and able to ambulate stairs. Transportation: self, son, brother DME/HHC: Patient states she has shower chair, cane, walker, and grab bars at home. Patient states she has had HHC in the past but does not recall agency. No previous SNF Disposition Plan: Patient to discharge home with family support and follow-up plans in place. Qing GIL, RN, CM
== END 2022-07-17 13:05 | disposition home or self-care (01) | DRG 918 ==
LOC: ED 07-16 00:11 → PCU 07-16 01:34
PROVIDERS: Admitting Provider Hospitalist; Emergency Provider Student in an Organized Health Care Education/Training Program; PCP Internal Medicine; Visit Provider Internal Medicine
DX: T50.3X1A Poisoning by electrolytic, caloric and water-balance agents, accidental (unintentional), initial encounter (principal); Z68.42 Body mass index [BMI] 45.0-49.9, adult; E03.9 Hypothyroidism, unspecified; E66.01 Morbid (severe) obesity due to excess calories; R19.7 Diarrhea, unspecified; E87.5 Hyperkalemia; M47.812 Spondylosis without myelopathy or radiculopathy, cervical region; E78.00 Pure hypercholesterolemia, unspecified; I10 Essential (primary) hypertension; G89.29 Other chronic pain; Z90.49 Acquired absence of other specified parts of digestive tract; Z79.899 Other long term (current) drug therapy; Z87.891 Personal history of nicotine dependence
CPT/HCPCS: 36415; 74177; 80048; 84132; 85025; 87329; 87506; 93005; 97161; 99284; J7030; Q9967; A4216